=== PATIENT | female | born 1965 | race Caucasian/White ===

== ENCOUNTER 2018-12-27 16:31 | Inpatient (IN) ==
[2018-12-27] MEDS ORDERED: SODIUM CHLORIDE 0.9% 1,000 ML IV STA (17:03)
[2018-12-27] MEDS ORDERED: ONDANSETRON 4 MG/2 ML VIAL IV PRN (17:03)
[2018-12-27 17:11] LABS: Basophils # 0.1 10*3/uL (0.0-0.2); Basophils % 0.4 % (0.0-0.8); Hematocrit 46.2 VOL% (35.7-47.0); Hemoglobin 14.5 GM/DL (12.0-16.0); Immature Granulocytes % 0.4 %; Immature Granulocytes Absolute 0.06 #; Lymphocytes # 1.6 10*3/uL (1.4-4.0); Lymphocytes % 11.7 % (21.3-54.2); Mean Corpuscular HGB Conc 31.4 GM/DL (32-36); Mean Corpuscular Volume 86.7 FL (87-102); Mean Platelet Volume 10.5 FL (9.6-12.0); Monocytes % 2.6 % (1.7-12.7); Neutrophils % 84.9 % (38.7-73.9); Platelet Count 457 T/CUMM (130-400); Red Blood Count 5.33 MC/CUMM (3.8-5.5); Red Cell Distribution Width 13.9 % (9.3-17.3); White Blood Count 13.3 T/CUMM (4-12)
[2018-12-27 17:18] LABS: INR 0.9; PT Patient Result 9.9 SECS (9.6-12.2)
[2018-12-27 17:21] LABS: Apearance,Urine CLEAR (Clear); Bacteria,Urine Occasional /HPF (Few); Bilirubin,Urine Negative (Negative); Blood, Urine Negative (Negative); Glucose,Urine (UA) >=500 mg/dL (Negative); Ketones,Urine 80 mg/dL (Negative); Nitrite,Urine Negative (Negative); Protein,Urine Negative; RBC,Urine 3 /HPF (0-4); Squamous Epithelial Cell,Urine Occasional /HPF (0-10); Urine Color Straw (Yellow); Urine Specific Gravity 1.022 (1.001-1.035); Urine Urobilinogen < 2.0 EU/DL (0.2-1.0); WBC,Urine <1 /HPF (0-6)
[2018-12-27 17:23] LABS: Alanine Aminotransferase 24 U/L (13-56); Alkaline Phosphatase 193 U/L (45-117); Aspartate Amino Transferase 12 U/L (0-37); Blood Urea Nitrogen 37 MG/DL (7-18); Calcium 9.8 MG/DL (8.5-10.1); Estimated Glom Filtration Rate 31 ML/MIN; Osmolality,Calculated 309.9 MOS/KG (273-304)
[2018-12-27] MEDS ORDERED: INSULIN REGULAR 100 UNIT/ML IV ONE (17:25)
[2018-12-27 17:27] LABS: Glucose 864 MG/DL (74-106)
[2018-12-27 17:31] LABS: Barbiturates Screen,Urine Negative (Negative); Benzodiazepines Screen,Urine Negative (Negative); Cannabinoid Screen,Urine Negative (Negative); Opiate Screen,Urine Negative (Negative); Phencyclidine Screen,Urine Negative (Negative)
[2018-12-27] MEDS ORDERED: SODIUM BICARB INJ 100 MEQ in STERILE WATER INJ 400 ML IV PRN (17:39)
[2018-12-27] MEDS ORDERED: DEXTROSE 50% 25 GM/50 ML VIAL IV PRN ×2 (17:39)
[2018-12-27] MEDS ORDERED: SODIUM CHLORIDE 0.9% 1,000 ML IV ONE (17:39)
[2018-12-27] MEDS ORDERED: SODIUM PHOSPHATE INJ 14.7 MMOL in SODIUM CHLORIDE 0.9% 250 ML IV PRN (17:39)
[2018-12-27] MEDS ORDERED: MAGNESIUM SULF RIDER 4 GM in PREMIX 1 EACH IV PRN (17:39)
[2018-12-27 18:05] LABS: ABG Base Excess -22.5 MMOL/L (-2.5-2.5); ABG HCO3 2.7 MMOL/L (20-26); ABG Oxygen Saturation 98.1 % (95-100); ABG PO2 134.6 MM HG (80-95); ABG TCO2 2.9 MMOL/L (23-27); Allen Test Positive; Pt O2 Delivery Device Room Air
[2018-12-27 18:13] LABS: ABG PCO2 7.1 MM HG (35-48); ABG PH 7.192 (7.35-7.45)
[2018-12-27] MEDS: INSULIN REGULAR DRIP 100 ML IV SCH (18:33)
[2018-12-27 18:38] LABS: Calcium 7.4 MG/DL (8.5-10.1); Osmolality,Calculated 317.5 MOS/KG (273-304)
[2018-12-27] MEDS: SODIUM CHLORIDE 0.9% 1,000 ML IV SCH ×2 (20:30→22:30)
[2018-12-27 23:33] LABS: Calcium 8.5 MG/DL (8.5-10.1); Osmolality,Calculated 302.8 MOS/KG (273-304)
[2018-12-27] MEDS ORDERED: PNEUMOCOCCAL VACCINE (23 VALENT) 0.5 ML VIAL IM ONE (23:37)
[2018-12-27] MEDS ORDERED: INFLUENZA VIRUS VACCINE 0.5 ML SYRINGE IM ONE (23:37)
[2018-12-28] MEDS ORDERED: INSULIN REGULAR 100 UNIT/ML IV ONE (00:20)
[2018-12-28] MEDS: SODIUM CHLORIDE 0.9% 1,000 ML IV SCH ×2 (00:31→04:06)
[2018-12-28 02:25] LABS: Basophils % 0.2 % (0.0-0.8); Hematocrit 35.9 VOL% (35.7-47.0); Hemoglobin 11.6 GM/DL (12.0-16.0); Immature Granulocytes % 0.6 %; Immature Granulocytes Absolute 0.09 #; Lymphocytes # 1.9 10*3/uL (1.4-4.0); Lymphocytes % 12.2 % (21.3-54.2); Mean Corpuscular HGB Conc 32.3 GM/DL (32-36); Mean Corpuscular Volume 84.1 FL (87-102); Mean Platelet Volume 9.5 FL (9.6-12.0); Monocytes % 7.4 % (1.7-12.7); Neutrophils % 79.6 % (38.7-73.9); Platelet Count 330 T/CUMM (130-400); Red Blood Count 4.27 MC/CUMM (3.8-5.5); Red Cell Distribution Width 13.9 % (9.3-17.3); White Blood Count 15.8 T/CUMM (4-12)
[2018-12-28 02:40] LABS: Calcium 8.1 MG/DL (8.5-10.1); Osmolality,Calculated 300.6 MOS/KG (273-304)
[2018-12-28] MEDS: SODIUM CHLORIDE 0.45% 1,000 ML IV SCH ×2 (03:10→08:54)
[2018-12-28 04:27] LABS: ABG HCO3 15.2 MMOL/L (20-26); ABG Oxygen Saturation 97.9 % (95-100); ABG PCO2 22.7 MM HG (35-48); ABG PH 7.342 (7.35-7.45); ABG PO2 96.2 MM HG (80-95); Allen Test Positive; Pt O2 Delivery Device Room Air
[2018-12-28] MEDS: DEXTROSE 5% NACL 0.45% 1,000 ML IV SCH ×2 (04:55→08:22)
[2018-12-28 06:28] LABS: Calcium 8.3 MG/DL (8.5-10.1); Osmolality,Calculated 293.7 MOS/KG (273-304)
[2018-12-28] MEDS: POTASSIUM CHLORIDE RIDER 10 MEQ in PREMIX 1 EACH IV PRN (07:14)
[2018-12-28] MEDS: MAGNESIUM SULF RIDER 2 GM in PREMIX 1 EACH IV PRN (07:14)
[2018-12-28 08:24] LABS: ABG Base Excess -7.6 MMOL/L (-2.5-2.5); ABG HCO3 18.3 MMOL/L (20-26); ABG Oxygen Saturation 97.9 % (95-100); ABG PCO2 27.3 MM HG (35-48); ABG PH 7.382 (7.35-7.45); ABG PO2 91.5 MM HG (80-95); ABG TCO2 14.4 MMOL/L (23-27)
[2018-12-28] MEDS ORDERED: MAGNESIUM SULF RIDER 2 GM in PREMIX 1 EACH IV ONE (08:57)
[2018-12-28] MEDS: DEXTROSE 5% LACTATED RINGERS 1,000 ML IV SCH ×2 (09:41→18:30)
[2018-12-28] MEDS ORDERED: SODIUM CHLORIDE 0.45% 1,000 ML IV SCH (10:39)
[2018-12-28] MEDS: INSULIN REGULAR DRIP 100 ML IV SCH (19:45)
[2018-12-28] MEDS: APIXABAN 2.5 MG TABLET PO SCH (21:18)
[2018-12-29] MEDS: DEXTROSE 5% LACTATED RINGERS 1,000 ML IV SCH ×4 (02:50→20:08)
[2018-12-29 03:25] LABS: Basophils # 0.1 10*3/uL (0.0-0.2); Basophils % 0.4 % (0.0-0.8); Hematocrit 35.3 VOL% (35.7-47.0); Hemoglobin 11.8 GM/DL (12.0-16.0); Immature Granulocytes % 0.9 %; Immature Granulocytes Absolute 0.11 #; Lymphocytes # 2.5 10*3/uL (1.4-4.0); Lymphocytes % 20.6 % (21.3-54.2); Mean Corpuscular HGB Conc 33.4 GM/DL (32-36); Mean Corpuscular Volume 81.1 FL (87-102); Mean Platelet Volume 9.4 FL (9.6-12.0); Monocytes % 6.4 % (1.7-12.7); Neutrophils % 71.7 % (38.7-73.9); Platelet Count 267 T/CUMM (130-400); Red Blood Count 4.35 MC/CUMM (3.8-5.5); Red Cell Distribution Width 14.2 % (9.3-17.3); White Blood Count 11.9 T/CUMM (4-12)
[2018-12-29 03:55] LABS: Calcium 8.6 MG/DL (8.5-10.1)
[2018-12-29] MEDS: POTASSIUM CHLORIDE RIDER 10 MEQ in PREMIX 1 EACH IV PRN ×10 (04:05→22:09)
[2018-12-29] MEDS: MAGNESIUM SULF RIDER 2 GM in PREMIX 1 EACH IV PRN (05:42)
[2018-12-29] MEDS: APIXABAN 2.5 MG TABLET PO SCH ×2 (08:55→20:10)
[2018-12-29] MEDS: ASPIRIN EC 81 MG TABLET PO SCH (08:57)
[2018-12-29] MEDS: INSULIN REGULAR DRIP 100 ML IV SCH (18:24)
[2018-12-29] MEDS: ACETAMINOPHEN 325 MG TABLET PO PRN (19:42)
[2018-12-30 04:16] LABS: Basophils # 0.1 10*3/uL (0.0-0.2); Basophils % 0.7 % (0.0-0.8); Eosinophils % 0.1 % (0.00-10.9); Hematocrit 35.5 VOL% (35.7-47.0); Hemoglobin 11.9 GM/DL (12.0-16.0); Immature Granulocytes % 0.6 %; Immature Granulocytes Absolute 0.06 #; Lymphocytes # 3.1 10*3/uL (1.4-4.0); Lymphocytes % 29.6 % (21.3-54.2); Mean Corpuscular HGB Conc 33.5 GM/DL (32-36); Mean Corpuscular Volume 80.7 FL (87-102); Mean Platelet Volume 9.9 FL (9.6-12.0); Monocytes % 10.3 % (1.7-12.7); Neutrophils % 58.7 % (38.7-73.9); Platelet Count 230 T/CUMM (130-400); Red Cell Distribution Width 14.4 % (9.3-17.3); White Blood Count 10.3 T/CUMM (4-12)
[2018-12-30] MEDS: DEXTROSE 5% LACTATED RINGERS 1,000 ML IV SCH ×2 (04:24→10:57)
[2018-12-30 04:39] LABS: Albumin 2.5 G/DL (3.4-5.0); Bilirubin,Total 0.5 MG/DL (0.2-1.0); Calcium 8.5 MG/DL (8.5-10.1); Osmolality,Calculated 274.5 MOS/KG (273-304)
[2018-12-30] MEDS: ACETAMINOPHEN 325 MG TABLET PO PRN ×3 (05:23→22:39)
[2018-12-30] MEDS: POTASSIUM CHLORIDE RIDER 10 MEQ in PREMIX 1 EACH IV PRN ×7 (05:24→17:24)
[2018-12-30] MEDS: MAGNESIUM SULF RIDER 2 GM in PREMIX 1 EACH IV PRN (05:24)
[2018-12-30] MEDS: APIXABAN 2.5 MG TABLET PO SCH ×2 (08:34→21:39)
[2018-12-30] MEDS: ASPIRIN EC 81 MG TABLET PO SCH (08:34)
[2018-12-30] MEDS ORDERED: DEXTROSE 10% 250 ML BAG IV ONE (09:14)
[2018-12-30] MEDS: INSULIN LISPRO 100 UNIT/ML SUBCUT SCH ×3 (11:41→20:50)
[2018-12-30] MEDS: SODIUM CHLOR 0.9% KCL 20 MEQ 20 MEQ/1,000 ML BAG IV SCH (11:41)
[2018-12-31] MEDS: INSULIN LISPRO 100 UNIT/ML SUBCUT SCH ×6 (00:11→22:28)
[2018-12-31] MEDS: SODIUM CHLOR 0.9% KCL 20 MEQ 20 MEQ/1,000 ML BAG IV SCH ×2 (07:42→21:15)
[2018-12-31] MEDS: APIXABAN 2.5 MG TABLET PO SCH ×2 (08:47→22:30)
[2018-12-31] MEDS: ACETAMINOPHEN 325 MG TABLET PO PRN ×2 (08:47→18:22)
[2018-12-31] MEDS: ASPIRIN EC 81 MG TABLET PO SCH (08:47)
[2018-12-31 08:49] LABS: Basophils # 0.1 10*3/uL (0.0-0.2); Basophils % 0.6 % (0.0-0.8); Eosinophils % 0.4 % (0.00-10.9); Hematocrit 36.9 VOL% (35.7-47.0); Hemoglobin 12.2 GM/DL (12.0-16.0); Immature Granulocytes % 0.7 %; Immature Granulocytes Absolute 0.06 #; Lymphocytes # 1.8 10*3/uL (1.4-4.0); Lymphocytes % 21.3 % (21.3-54.2); Mean Corpuscular HGB Conc 33.1 GM/DL (32-36); Mean Corpuscular Volume 81.5 FL (87-102); Mean Platelet Volume 10.1 FL (9.6-12.0); Monocytes % 8.6 % (1.7-12.7); Neutrophils % 68.4 % (38.7-73.9); Red Blood Count 4.53 MC/CUMM (3.8-5.5); Red Cell Distribution Width 14.5 % (9.3-17.3); White Blood Count 8.2 T/CUMM (4-12)
[2018-12-31 08:51] LABS: Platelet Count 169 T/CUMM (130-400)
[2018-12-31 09:08] LABS: Calcium 8.9 MG/DL (8.5-10.1); Osmolality,Calculated 282.5 MOS/KG (273-304)
[2018-12-31] MEDS: POTASSIUM CHLORIDE RIDER 10 MEQ in PREMIX 1 EACH IV PRN ×2 (10:20→11:21)
[2018-12-31] MEDS: MAGNESIUM SULF RIDER 2 GM in PREMIX 1 EACH IV PRN (10:21)
[2018-12-31] MEDS: INSULIN REGULAR DRIP 100 ML IV SCH (16:36)
[2018-12-31] MEDS: DEXTROSE 5% LACTATED RINGERS 1,000 ML IV SCH (16:36)
[2018-12-31] MEDS: ACETAMINOPHEN 500 MG TABLET PO PRN (22:30)
[2019-01-01] MEDS: INSULIN LISPRO 100 UNIT/ML SUBCUT SCH ×6 (00:40→20:43)
[2019-01-01] MEDS: SODIUM CHLOR 0.9% KCL 20 MEQ 20 MEQ/1,000 ML BAG IV SCH ×3 (00:45→20:45)
[2019-01-01] MEDS ORDERED: diphenhydrAMINE 50 MG/1 ML VIAL IV ONE (01:16)
[2019-01-01] MEDS: ACETAMINOPHEN 500 MG TABLET PO PRN ×3 (03:48→20:44)
[2019-01-01 05:02] LABS: Prealbumin 10.2 MG/DL (20-40)
[2019-01-01] MEDS: ASPIRIN EC 81 MG TABLET PO SCH (09:16)
[2019-01-01] MEDS: APIXABAN 2.5 MG TABLET PO SCH (09:16)
[2019-01-01] MEDS ORDERED: SIMVASTATIN 10 MG TABLET PO SCH (21:00)
[2019-01-02] MEDS: INSULIN LISPRO 100 UNIT/ML SUBCUT SCH ×6 (00:23→21:52)
[2019-01-02] MEDS: ACETAMINOPHEN 500 MG TABLET PO PRN ×2 (01:47→21:54)
[2019-01-02 07:22] LABS: Basophils # 0.1 10*3/uL (0.0-0.2); Basophils % 0.6 % (0.0-0.8); Eosinophils % 0.1 % (0.00-10.9); Hematocrit 32.1 VOL% (35.7-47.0); Hemoglobin 10.4 GM/DL (12.0-16.0); Immature Granulocytes % 1.2 %; Immature Granulocytes Absolute 0.12 #; Lymphocytes # 1.1 10*3/uL (1.4-4.0); Lymphocytes % 10.7 % (21.3-54.2); Mean Corpuscular HGB Conc 32.4 GM/DL (32-36); Mean Corpuscular Volume 83.6 FL (87-102); Mean Platelet Volume 10.7 FL (9.6-12.0); Monocytes % 15.2 % (1.7-12.7); Neutrophils % 72.2 % (38.7-73.9); Platelet Count 348 T/CUMM (130-400); Red Blood Count 3.84 MC/CUMM (3.8-5.5); White Blood Count 10.4 T/CUMM (4-12)
[2019-01-02 07:45] LABS: Band Neutrophils 5 % (0-10); Eosinophils 1 % (0-10); Hypochromasia 1+; Lymphocytes 12 % (20-55); Platelet Estimate Adequate; Segmented Neutrophils 73 % (50-85); Total Cells Counted 100
[2019-01-02 07:49] LABS: Calcium 9.4 MG/DL (8.5-10.1)
[2019-01-02] MEDS: ASPIRIN EC 81 MG TABLET PO SCH ×2 (08:25→08:32)
[2019-01-02] MEDS: SODIUM CHLOR 0.9% KCL 20 MEQ 20 MEQ/1,000 ML BAG IV SCH (16:39)
[2019-01-02] MEDS: ATORVASTATIN 40 MG TABLET PO SCH (21:54)
[2019-01-03] MEDS: INSULIN LISPRO 100 UNIT/ML SUBCUT SCH ×6 (04:22→21:38)
[2019-01-03] MEDS: SODIUM CHLOR 0.9% KCL 20 MEQ 20 MEQ/1,000 ML BAG IV SCH ×2 (04:22→10:45)
[2019-01-03 05:52] LABS: Basophils % 0.3 % (0.0-0.8); Hematocrit 34.9 VOL% (35.7-47.0); Hemoglobin 11.1 GM/DL (12.0-16.0); Immature Granulocytes Absolute 0.15 #; Lymphocytes # 1.6 10*3/uL (1.4-4.0); Lymphocytes % 10.6 % (21.3-54.2); Mean Corpuscular HGB Conc 31.8 GM/DL (32-36); Mean Corpuscular Volume 84.7 FL (87-102); Mean Platelet Volume 10.9 FL (9.6-12.0); Monocytes % 12.2 % (1.7-12.7); NRBC # 0.02 10*3/uL; Neutrophils % 75.9 % (38.7-73.9); Platelet Count 429 T/CUMM (130-400); Red Blood Count 4.12 MC/CUMM (3.8-5.5); Red Cell Distribution Width 15.6 % (9.3-17.3); White Blood Count 15.2 T/CUMM (4-12)
[2019-01-03 06:25] LABS: Calcium 10.1 MG/DL (8.5-10.1); Osmolality,Calculated 303.6 MOS/KG (273-304)
[2019-01-03 06:28] LABS: Hypochromasia Slight; Platelet Estimate Normal; Polychromasia Few
[2019-01-03] MEDS: ASPIRIN EC 81 MG TABLET PO SCH (10:44)
[2019-01-03] MEDS ORDERED: METOPROLOL TARTRATE 5 MG/5 ML VIAL IV ONE (18:14)
[2019-01-03] MEDS: ACETAMINOPHEN 500 MG TABLET PO PRN (20:17)
[2019-01-03] MEDS: ATORVASTATIN 40 MG TABLET PO SCH (20:18)
[2019-01-03 21:05] LABS: Apearance,Urine CLOUDY (Clear); Bacteria,Urine Many /HPF (Few); Bilirubin,Urine Negative (Negative); Blood, Urine Small mg/dL (Negative); Glucose,Urine (UA) >=500 mg/dL (Negative); Ketones,Urine 20 mg/dL (Negative); Mucus,Urine Occasional /LPF (Occasional); Nitrite,Urine Negative (Negative); Protein,Urine 100 MG/DL; RBC,Urine 8 /HPF (0-4); Squamous Epithelial Cell,Urine Moderate /HPF (0-10); Urine Color Amber (Yellow); Urine Specific Gravity 1.023 (1.001-1.035); Urine Urobilinogen < 2.0 EU/DL (0.2-1.0); WBC,Urine 37 /HPF (0-6)
[2019-01-03] MEDS: cefTRIAXone 1,000 MG in SYRINGE 1 EACH IV SCH (22:29)
[2019-01-04] MEDS: INSULIN LISPRO 100 UNIT/ML SUBCUT SCH ×6 (00:42→21:15)
[2019-01-04] MEDS: ACETAMINOPHEN 500 MG TABLET PO PRN ×3 (04:21→18:15)
[2019-01-04 05:22] LABS: Basophils # 0.1 10*3/uL (0.0-0.2); Basophils % 0.4 % (0.0-0.8); Hematocrit 34.3 VOL% (35.7-47.0); Hemoglobin 10.7 GM/DL (12.0-16.0); Immature Granulocytes % 1.2 %; Immature Granulocytes Absolute 0.31 #; Lymphocytes # 2.7 10*3/uL (1.4-4.0); Lymphocytes % 10.4 % (21.3-54.2); Mean Corpuscular HGB Conc 31.2 GM/DL (32-36); Mean Corpuscular Volume 87.7 FL (87-102); Mean Platelet Volume 11.1 FL (9.6-12.0); Monocytes % 9.7 % (1.7-12.7); NRBC # 0.02 10*3/uL; Neutrophils % 78.3 % (38.7-73.9); Platelet Count 457 T/CUMM (130-400); Red Blood Count 3.91 MC/CUMM (3.8-5.5); Red Cell Distribution Width 16.2 % (9.3-17.3)
[2019-01-04 05:37] LABS: Calcium 10.2 MG/DL (8.5-10.1); Osmolality,Calculated 308.9 MOS/KG (273-304); Prealbumin 4.4 MG/DL (20-40)
[2019-01-04 05:50] LABS: Band Neutrophils 3 % (0-10); Lymphocytes 12 % (20-55); Metamyelocytes 2 %; Segmented Neutrophils 74 % (50-85); Total Cells Counted 100
[2019-01-04 05:51] LABS: Hypochromasia Slight; Platelet Estimate Increased
[2019-01-04] MEDS: SODIUM CHLOR 0.9% KCL 20 MEQ 20 MEQ/1,000 ML BAG IV SCH (06:09)
[2019-01-04] MEDS: DEXTROSE 5% NACL 0.45% 1,000 ML IV SCH (09:22)
[2019-01-04] MEDS: ASPIRIN EC 81 MG TABLET PO SCH (09:22)
[2019-01-04] MEDS: METOPROLOL TARTRATE 25 MG TABLET PO SCH ×2 (09:23→21:15)
[2019-01-04] MEDS ORDERED: VANCOMYCIN INJ 1,000 MG in SODIUM CHLORIDE 0.9% 250 ML IV SCH (12:00)
[2019-01-04] MEDS: IBUPROFEN 100 MG/5 ML UDCUP PO PRN (20:34)
[2019-01-04] MEDS: ATORVASTATIN 40 MG TABLET PO SCH (21:15)
[2019-01-04] MEDS: cefTRIAXone 1,000 MG in SYRINGE 1 EACH IV SCH (22:12)
[2019-01-05] MEDS: VANCOMYCIN INJ 1,000 MG in SODIUM CHLORIDE 0.9% 250 ML IV SCH ×2 (00:22→11:09)
[2019-01-05] MEDS: INSULIN LISPRO 100 UNIT/ML SUBCUT SCH ×6 (00:23→20:35)
[2019-01-05] MEDS: ACETAMINOPHEN 325 MG/10.15 ML UDCUP PO PRN (00:24)
[2019-01-05 04:21] LABS: Basophils # 0.1 10*3/uL (0.0-0.2); Basophils % 0.3 % (0.0-0.8); Hematocrit 33.9 VOL% (35.7-47.0); Hemoglobin 10.7 GM/DL (12.0-16.0); Immature Granulocytes % 2.1 %; Immature Granulocytes Absolute 0.63 #; Lymphocytes % 9.9 % (21.3-54.2); Mean Corpuscular HGB Conc 31.6 GM/DL (32-36); Mean Corpuscular Volume 85.2 FL (87-102); Mean Platelet Volume 10.4 FL (9.6-12.0); Neutrophils % 82.7 % (38.7-73.9); Platelet Count 519 T/CUMM (130-400); Red Blood Count 3.98 MC/CUMM (3.8-5.5); Red Cell Distribution Width 16.1 % (9.3-17.3)
[2019-01-05 05:17] LABS: Calcium 10.2 MG/DL (8.5-10.1); Osmolality,Calculated 300.4 MOS/KG (273-304)
[2019-01-05 05:27] LABS: Anisocytosis 1+; Lymphocytes 10 % (20-55); Platelet Estimate Increased; Segmented Neutrophils 81 % (50-85); Total Cells Counted 100
[2019-01-05] MEDS: METOPROLOL TARTRATE 25 MG TABLET PO SCH ×2 (08:47→20:36)
[2019-01-05] MEDS: ASPIRIN EC 81 MG TABLET PO SCH (08:48)
[2019-01-05] MEDS: DEXTROSE 5% NACL 0.45% 1,000 ML IV SCH (08:49)
[2019-01-05] MEDS ORDERED: APIXABAN 2.5 MG TABLET PO ONE (10:30)
[2019-01-05] MEDS: POLYETHYLENE GLYCOL POWDER 17 GM PACK PO SCH (11:49)
[2019-01-05] MEDS: INSULIN GLARGINE 100 UNIT/ML SUBCUT SCH (20:34)
[2019-01-05] MEDS: ATORVASTATIN 40 MG TABLET PO SCH (20:36)
[2019-01-05] MEDS: APIXABAN 2.5 MG TABLET PO SCH (20:38)
[2019-01-05] MEDS: cefTRIAXone 1,000 MG in SYRINGE 1 EACH IV SCH (21:02)
[2019-01-06] MEDS: VANCOMYCIN INJ 1,000 MG in SODIUM CHLORIDE 0.9% 250 ML IV SCH ×3 (00:31→23:58)
[2019-01-06 00:38] LABS: Barbiturates Screen,Urine Negative (Negative); Benzodiazepines Screen,Urine Negative (Negative); Cannabinoid Screen,Urine Positive (Negative); Opiate Screen,Urine Positive (Negative); Phencyclidine Screen,Urine Negative (Negative)
[2019-01-06] MEDS: INSULIN LISPRO 100 UNIT/ML SUBCUT SCH ×6 (01:23→20:22)
[2019-01-06] MEDS: ACETAMINOPHEN 325 MG/10.15 ML UDCUP PO PRN ×2 (05:43→15:39)
[2019-01-06 06:14] LABS: Basophils # 0.1 10*3/uL (0.0-0.2); Basophils % 0.3 % (0.0-0.8); Eosinophils % 0.1 % (0.00-10.9); Hematocrit 32.9 VOL% (35.7-47.0); Hemoglobin 10.2 GM/DL (12.0-16.0); Immature Granulocytes % 2.2 %; Immature Granulocytes Absolute 0.57 #; Lymphocytes # 2.4 10*3/uL (1.4-4.0); Lymphocytes % 9.5 % (21.3-54.2); Mean Corpuscular Volume 86.1 FL (87-102); Mean Platelet Volume 11.6 FL (9.6-12.0); Monocytes % 4.4 % (1.7-12.7); NRBC # 0.03 10*3/uL; Neutrophils % 83.5 % (38.7-73.9); Platelet Count 346 T/CUMM (130-400); Red Blood Count 3.82 MC/CUMM (3.8-5.5); Red Cell Distribution Width 16.4 % (9.3-17.3); White Blood Count 25.5 T/CUMM (4-12)
[2019-01-06 06:30] LABS: Anisocytosis 1+; Lymphocytes 7 % (20-55); Segmented Neutrophils 90 % (50-85); Total Cells Counted 100
[2019-01-06 06:31] LABS: Platelet Estimate Normal
[2019-01-06] MEDS: DEXTROSE 5% NACL 0.45% 1,000 ML IV SCH (07:06)
[2019-01-06] MEDS: SODIUM CHLORIDE 0.9% 1,000 ML IV SCH (07:08)
[2019-01-06 07:51] LABS: Calcium 9.7 MG/DL (8.5-10.1); Osmolality,Calculated 313.4 MOS/KG (273-304)
[2019-01-06 08:23] LABS: Apearance,Urine CLOUDY (Clear); Bilirubin,Urine Negative (Negative); Blood, Urine Moderate mg/dL (Negative); Glucose,Urine (UA) 150 mg/dL (Negative); Ketones,Urine Negative (Negative); Nitrite,Urine Negative (Negative); Protein,Urine 100 MG/DL; RBC,Urine 16190 /HPF (0-4); Urine Color Yellow (Yellow); Urine Specific Gravity 1.023 (1.001-1.035); WBC,Urine 139 /HPF (0-6)
[2019-01-06] MEDS: APIXABAN 2.5 MG TABLET PO SCH ×2 (09:01→20:18)
[2019-01-06] MEDS: ASPIRIN EC 81 MG TABLET PO SCH (09:01)
[2019-01-06] MEDS: METOPROLOL TARTRATE 25 MG TABLET PO SCH ×2 (09:02→20:17)
[2019-01-06] MEDS: POLYETHYLENE GLYCOL POWDER 17 GM PACK PO SCH (09:46)
[2019-01-06] MEDS: INSULIN GLARGINE 100 UNIT/ML SUBCUT SCH (20:21)
[2019-01-06] MEDS: ATORVASTATIN 40 MG TABLET PO SCH (20:21)
[2019-01-06] MEDS: cefTRIAXone 1,000 MG in SYRINGE 1 EACH IV SCH (21:46)
[2019-01-07] MEDS: ALBUTEROL/IPRATROPIUM 3 ML NEB RESP TX PRN ×2 (01:13→16:18)
[2019-01-07] MEDS: ACETAMINOPHEN 325 MG/10.15 ML UDCUP PO PRN (01:48)
[2019-01-07] MEDS: INSULIN LISPRO 100 UNIT/ML SUBCUT SCH ×6 (01:56→21:18)
[2019-01-07] MEDS: SODIUM CHLORIDE 0.9% 1,000 ML IV SCH ×2 (04:01→04:57)
[2019-01-07 08:00] LABS: Basophils # 0.1 10*3/uL (0.0-0.2); Basophils % 0.4 % (0.0-0.8); Hematocrit 31.7 VOL% (35.7-47.0); Hemoglobin 9.9 GM/DL (12.0-16.0); Immature Granulocytes % 4.2 %; Immature Granulocytes Absolute 1.07 #; Lymphocytes # 2.9 10*3/uL (1.4-4.0); Lymphocytes % 11.3 % (21.3-54.2); Mean Corpuscular HGB Conc 31.2 GM/DL (32-36); Mean Corpuscular Volume 85.9 FL (87-102); Mean Platelet Volume 10.3 FL (9.6-12.0); Monocytes % 4.1 % (1.7-12.7); Platelet Count 489 T/CUMM (130-400); Red Blood Count 3.69 MC/CUMM (3.8-5.5); Red Cell Distribution Width 16.5 % (9.3-17.3); White Blood Count 25.2 T/CUMM (4-12)
[2019-01-07 08:18] LABS: Calcium 9.2 MG/DL (8.5-10.1); Osmolality,Calculated 316.6 MOS/KG (273-304)
[2019-01-07 08:23] LABS: Band Neutrophils 5 % (0-10); Eosinophils 1 % (0-10); Lymphocytes 12 % (20-55); Platelet Estimate Normal; Segmented Neutrophils 76 % (50-85); Smudge Cells Few; Total Cells Counted 100
[2019-01-07 08:24] LABS: Anisocytosis Slight
[2019-01-07] MEDS: METOPROLOL TARTRATE 25 MG TABLET PO SCH ×2 (09:51→21:19)
[2019-01-07] MEDS: POLYETHYLENE GLYCOL POWDER 17 GM PACK PO SCH (09:51)
[2019-01-07] MEDS: ASPIRIN EC 81 MG TABLET PO SCH (09:51)
[2019-01-07] MEDS: APIXABAN 2.5 MG TABLET PO SCH ×2 (09:51→21:19)
[2019-01-07] MEDS: PIPERACILLIN/TAZOBACTAM 3,375 MG in SODIUM CHLORIDE 0.9% 100 ML IV SCH ×2 (09:52→18:25)
[2019-01-07] MEDS: DEXTROSE 5% NACL 0.45% 1,000 ML IV SCH (11:23)
[2019-01-07] MEDS: VANCOMYCIN INJ 1,000 MG in SODIUM CHLORIDE 0.9% 250 ML IV SCH ×2 (12:18→23:37)
[2019-01-07] MEDS: INSULIN GLARGINE 100 UNIT/ML SUBCUT SCH (21:19)
[2019-01-07] MEDS: ATORVASTATIN 40 MG TABLET PO SCH (21:20)
[2019-01-08] MEDS: INSULIN LISPRO 100 UNIT/ML SUBCUT SCH ×7 (00:10→23:51)
[2019-01-08] MEDS: DEXTROSE 5% NACL 0.45% 1,000 ML IV SCH (00:38)
[2019-01-08] MEDS: PIPERACILLIN/TAZOBACTAM 3,375 MG in SODIUM CHLORIDE 0.9% 100 ML IV SCH ×3 (02:05→17:00)
[2019-01-08 04:52] LABS: Basophils % 0.2 % (0.0-0.8); Eosinophils # 0.1 10*3/uL (0.0-0.87); Eosinophils % 0.4 % (0.00-10.9); Hematocrit 26.4 VOL% (35.7-47.0); Hemoglobin 7.8 GM/DL (12.0-16.0); Immature Granulocytes Absolute 0.65 #; Lymphocytes # 1.9 10*3/uL (1.4-4.0); Lymphocytes % 11.6 % (21.3-54.2); Mean Corpuscular HGB Conc 29.5 GM/DL (32-36); Mean Corpuscular Volume 88.9 FL (87-102); Mean Platelet Volume 11.6 FL (9.6-12.0); Monocytes % 4.3 % (1.7-12.7); NRBC # 0.02 10*3/uL; Neutrophils % 79.5 % (38.7-73.9); Platelet Count 281 T/CUMM (130-400); Red Blood Count 2.97 MC/CUMM (3.8-5.5); Red Cell Distribution Width 16.9 % (9.3-17.3); White Blood Count 16.4 T/CUMM (4-12)
[2019-01-08 05:16] LABS: Band Neutrophils 2 % (0-10); Eosinophils 2 % (0-10); Hypochromasia 1+; Lymphocytes 15 % (20-55); Platelet Estimate Adequate; Segmented Neutrophils 79 % (50-85); Total Cells Counted 100
[2019-01-08 05:17] LABS: Atypical Lymphocytes Few
[2019-01-08 05:19] LABS: Calcium 8.8 MG/DL (8.5-10.1); Osmolality,Calculated 311.4 MOS/KG (273-304); Prealbumin 3.7 MG/DL (20-40)
[2019-01-08] MEDS: ALBUTEROL/IPRATROPIUM 3 ML NEB RESP TX PRN (05:21)
[2019-01-08] MEDS: POTASSIUM CHLORIDE RIDER 10 MEQ in PREMIX 1 EACH IV PRN (06:15)
[2019-01-08] MEDS ORDERED: PROPOFOL 200 MG/20 ML VIAL IV ONE (09:02)
[2019-01-08] MEDS ORDERED: ETOMIDATE 40 MG/20 ML VIAL IV ONE (09:02)
[2019-01-08] MEDS ORDERED: LIDOCAINE 2% 5 ML VIAL ONE (09:02)
[2019-01-08] MEDS ORDERED: MIDAZOLAM 2 MG/2 ML VIAL ONE (09:02)
[2019-01-08] MEDS ORDERED: PHENYLEPHRINE 1 MG/10 ML SYRINGE IV ONE (09:03)
[2019-01-08] MEDS ORDERED: ROCURONIUM 100 MG/10 ML VIAL IV ONE (09:03)
[2019-01-08] MEDS ORDERED: SUCCINYLCHOLINE 200 MG/10 ML VIAL ONE (09:03)
[2019-01-08] MEDS ORDERED: PHENYLEPHRINE DRIP 40 MG/250 ML PREMIX IV PRN (09:10)
[2019-01-08] MEDS: ASPIRIN EC 81 MG TABLET PO SCH (09:12)
[2019-01-08] MEDS: METOPROLOL TARTRATE 25 MG TABLET PO SCH ×2 (09:24→20:25)
[2019-01-08] MEDS: APIXABAN 2.5 MG TABLET PO SCH ×2 (09:24→20:25)
[2019-01-08] MEDS: POLYETHYLENE GLYCOL POWDER 17 GM PACK PO SCH (09:27)
[2019-01-08] MEDS: DEXTROSE 5% 1,000 ML IV SCH ×2 (09:31→16:55)
[2019-01-08] MEDS: PROPOFOL 1,000 MG/100 ML BOTTLE IV SCH (10:14)
[2019-01-08] MEDS: VANCOMYCIN INJ 1,000 MG in SODIUM CHLORIDE 0.9% 250 ML IV SCH ×2 (13:30→23:51)
[2019-01-08 14:23] LABS: ABG Base Excess -2.8 MMOL/L (-2.5-2.5); ABG HCO3 22.1 MMOL/L (20-26); ABG Oxygen Saturation 99.6 % (95-100); ABG PCO2 34.7 MM HG (35-48); ABG PH 7.399 (7.35-7.45); ABG TCO2 19.4 MMOL/L (23-27); Allen Test Positive; Pt O2 Delivery Device Ventilator
[2019-01-08] MEDS: INSULIN GLARGINE 100 UNIT/ML SUBCUT SCH (20:24)
[2019-01-08] MEDS: ATORVASTATIN 40 MG TABLET PO SCH (20:25)
[2019-01-09] MEDS: DEXTROSE 5% 1,000 ML IV SCH ×2 (00:58→09:21)
[2019-01-09] MEDS: PIPERACILLIN/TAZOBACTAM 3,375 MG in SODIUM CHLORIDE 0.9% 100 ML IV SCH ×3 (03:13→17:23)
[2019-01-09] MEDS: INSULIN LISPRO 100 UNIT/ML SUBCUT SCH ×5 (03:56→20:24)
[2019-01-09 04:16] LABS: ABG Base Excess -2.7 MMOL/L (-2.5-2.5); ABG HCO3 22.2 MMOL/L (20-26); ABG Oxygen Saturation 99.5 % (95-100); ABG PCO2 32.3 MM HG (35-48); ABG PH 7.425 (7.35-7.45); ABG TCO2 19.9 MMOL/L (23-27); Allen Test Positive; Pt O2 Delivery Device Ventilator
[2019-01-09 04:31] LABS: Basophils % 0.2 % (0.0-0.8); Eosinophils # 0.1 10*3/uL (0.0-0.87); Eosinophils % 0.7 % (0.00-10.9); Hematocrit 23.8 VOL% (35.7-47.0); Hemoglobin 7.2 GM/DL (12.0-16.0); Immature Granulocytes % 2.3 %; Immature Granulocytes Absolute 0.42 #; Lymphocytes # 2.4 10*3/uL (1.4-4.0); Lymphocytes % 13.4 % (21.3-54.2); Mean Corpuscular HGB Conc 30.3 GM/DL (32-36); Mean Corpuscular Volume 88.8 FL (87-102); Monocytes % 3.6 % (1.7-12.7); NRBC # 0.05 10*3/uL; Neutrophils % 79.8 % (38.7-73.9); Platelet Count 426 T/CUMM (130-400); Red Blood Count 2.68 MC/CUMM (3.8-5.5); Red Cell Distribution Width 16.6 % (9.3-17.3); White Blood Count 18.2 T/CUMM (4-12)
[2019-01-09 04:40] LABS: Calcium 8.3 MG/DL (8.5-10.1); Osmolality,Calculated 291.1 MOS/KG (273-304)
[2019-01-09 04:55] LABS: Hypochromasia 1+; Platelet Estimate Adequate
[2019-01-09] MEDS: PROPOFOL 1,000 MG/100 ML BOTTLE IV SCH ×3 (05:07→17:31)
[2019-01-09] MEDS: APIXABAN 2.5 MG TABLET PO SCH ×2 (08:17→20:23)
[2019-01-09] MEDS: METOPROLOL TARTRATE 25 MG TABLET PO SCH ×2 (08:17→20:23)
[2019-01-09] MEDS: POLYETHYLENE GLYCOL POWDER 17 GM PACK PO SCH (08:17)
[2019-01-09] MEDS: ASPIRIN CHEW 81 MG TABLET PO SCH (08:17)
[2019-01-09] MEDS ORDERED: FUROSEMIDE 20 MG/2 ML VIAL IV ONE (08:35)
[2019-01-09] MEDS ORDERED: SODIUM CHLORIDE 0.9% 1,000 ML IV PRN (08:37)
[2019-01-09] MEDS: VANCOMYCIN INJ 1,000 MG in SODIUM CHLORIDE 0.9% 250 ML IV SCH (12:49)
[2019-01-09] MEDS ORDERED: INSULIN LISPRO 100 UNIT/ML SUBCUT ONE (13:59)
[2019-01-09] MEDS: LACTATED RINGERS 1,000 ML IV SCH ×2 (14:21→23:04)
[2019-01-09 16:52] LABS: Hematocrit 30.6 VOL% (35.7-47.0); Hemoglobin 9.8 GM/DL (12.0-16.0)
[2019-01-09] MEDS: INSULIN GLARGINE 100 UNIT/ML SUBCUT SCH (20:23)
[2019-01-09] MEDS: ATORVASTATIN 40 MG TABLET PO SCH (20:23)
[2019-01-09] MEDS: ACETAMINOPHEN 325 MG/10.15 ML UDCUP PO PRN (20:28)
[2019-01-09] MEDS: IBUPROFEN 100 MG/5 ML UDCUP PO PRN (23:11)
[2019-01-10] MEDS: INSULIN LISPRO 100 UNIT/ML SUBCUT SCH ×6 (00:35→20:51)
[2019-01-10] MEDS: VANCOMYCIN INJ 1,000 MG in SODIUM CHLORIDE 0.9% 250 ML IV SCH ×2 (00:36→12:13)
[2019-01-10] MEDS: PIPERACILLIN/TAZOBACTAM 3,375 MG in SODIUM CHLORIDE 0.9% 100 ML IV SCH ×3 (02:19→18:49)
[2019-01-10 05:08] LABS: Basophils # 0.1 10*3/uL (0.0-0.2); Basophils % 0.2 % (0.0-0.8); Eosinophils # 0.1 10*3/uL (0.0-0.87); Eosinophils % 0.5 % (0.00-10.9); Hematocrit 28.1 VOL% (35.7-47.0); Hemoglobin 9.1 GM/DL (12.0-16.0); Immature Granulocytes % 4.6 %; Lymphocytes # 3.6 10*3/uL (1.4-4.0); Lymphocytes % 16.5 % (21.3-54.2); Mean Corpuscular HGB Conc 32.4 GM/DL (32-36); Mean Corpuscular Volume 84.4 FL (87-102); Mean Platelet Volume 10.7 FL (9.6-12.0); Monocytes % 2.9 % (1.7-12.7); NRBC # 0.07 10*3/uL; Neutrophils % 75.3 % (38.7-73.9); Platelet Count 415 T/CUMM (130-400); Red Blood Count 3.33 MC/CUMM (3.8-5.5); Red Cell Distribution Width 16.1 % (9.3-17.3); White Blood Count 21.6 T/CUMM (4-12)
[2019-01-10 05:33] LABS: Eosinophils 1 % (0-10); Hypochromasia 1+; Lymphocytes 21 % (20-55); Platelet Estimate Adequate; Segmented Neutrophils 77 % (50-85); Total Cells Counted 100
[2019-01-10 05:41] LABS: Calcium 8.3 MG/DL (8.5-10.1); Osmolality,Calculated 291.8 MOS/KG (273-304)
[2019-01-10] MEDS: LACTATED RINGERS 1,000 ML IV SCH ×4 (06:24→22:06)
[2019-01-10] MEDS: POTASSIUM CHLORIDE RIDER 10 MEQ in PREMIX 1 EACH IV PRN (06:39)
[2019-01-10] MEDS: APIXABAN 2.5 MG TABLET PO SCH ×2 (09:19→20:52)
[2019-01-10] MEDS: METOPROLOL TARTRATE 25 MG TABLET PO SCH ×2 (09:19→20:52)
[2019-01-10] MEDS: POLYETHYLENE GLYCOL POWDER 17 GM PACK PO SCH (09:19)
[2019-01-10] MEDS: ASPIRIN CHEW 81 MG TABLET PO SCH (09:20)
[2019-01-10] MEDS: POTASSIUM CHLORIDE 20 MEQ TABLET PO SCH ×3 (09:47→18:49)
[2019-01-10] MEDS: PROPOFOL 1,000 MG/100 ML BOTTLE IV SCH (12:09)
[2019-01-10 12:35] LABS: ABG Base Excess -1.7 MMOL/L (-2.5-2.5); ABG Oxygen Saturation 96.5 % (95-100); ABG PCO2 34.8 MM HG (35-48); ABG PH 7.417 (7.35-7.45); ABG PO2 74.9 MM HG (80-95); ABG TCO2 20.7 MMOL/L (23-27); Allen Test Positive; Pt O2 Delivery Device Ventilator
[2019-01-10] MEDS: INSULIN GLARGINE 100 UNIT/ML SUBCUT SCH (20:51)
[2019-01-10] MEDS: ATORVASTATIN 40 MG TABLET PO SCH (20:52)
[2019-01-11] MEDS: INSULIN LISPRO 100 UNIT/ML SUBCUT SCH ×6 (00:19→21:12)
[2019-01-11] MEDS: VANCOMYCIN INJ 1,000 MG in SODIUM CHLORIDE 0.9% 250 ML IV SCH ×2 (01:40→13:32)
[2019-01-11] MEDS: PIPERACILLIN/TAZOBACTAM 3,375 MG in SODIUM CHLORIDE 0.9% 100 ML IV SCH ×2 (01:42→09:17)
[2019-01-11 04:31] LABS: ABG Base Excess -1.6 MMOL/L (-2.5-2.5); ABG HCO3 21.4 MMOL/L (20-26); ABG Oxygen Saturation 97.2 % (95-100); ABG PCO2 30.7 MM HG (35-48); ABG PH 7.462 (7.35-7.45); ABG PO2 87.8 MM HG (80-95); ABG TCO2 22.4 MMOL/L (23-27); Allen Test Positive; Pt O2 Delivery Device Ventilator
[2019-01-11] MEDS: PROPOFOL 1,000 MG/100 ML BOTTLE IV SCH (05:10)
[2019-01-11 05:13] LABS: Basophils # 0.1 10*3/uL (0.0-0.2); Basophils % 0.3 % (0.0-0.8); Eosinophils # 0.1 10*3/uL (0.0-0.87); Eosinophils % 0.5 % (0.00-10.9); Hematocrit 29.8 VOL% (35.7-47.0); Hemoglobin 9.4 GM/DL (12.0-16.0); Immature Granulocytes % 2.9 %; Immature Granulocytes Absolute 0.59 #; Lymphocytes # 2.1 10*3/uL (1.4-4.0); Lymphocytes % 9.9 % (21.3-54.2); Mean Corpuscular HGB Conc 31.5 GM/DL (32-36); Mean Corpuscular Volume 85.4 FL (87-102); Mean Platelet Volume 10.7 FL (9.6-12.0); Monocytes % 2.8 % (1.7-12.7); Neutrophils % 83.6 % (38.7-73.9); Platelet Count 432 T/CUMM (130-400); Red Blood Count 3.49 MC/CUMM (3.8-5.5); Red Cell Distribution Width 16.8 % (9.3-17.3); White Blood Count 20.7 T/CUMM (4-12)
[2019-01-11 05:37] LABS: Band Neutrophils 3 % (0-10); Lymphocytes 9 % (20-55); Nucleated Red Blood Cells 1 (0-5); Platelet Estimate Adequate; Segmented Neutrophils 85 % (50-85); Total Cells Counted 100
[2019-01-11 05:38] LABS: Hypochromasia 1+
[2019-01-11] MEDS: LACTATED RINGERS 1,000 ML IV SCH ×3 (05:49→21:20)
[2019-01-11 05:53] LABS: Prealbumin 4.3 MG/DL (20-40)
[2019-01-11 06:02] LABS: Calcium 8.4 MG/DL (8.5-10.1); Osmolality,Calculated 290.1 MOS/KG (273-304)
[2019-01-11] MEDS: APIXABAN 2.5 MG TABLET PO SCH ×2 (08:21→21:13)
[2019-01-11] MEDS: ASPIRIN CHEW 81 MG TABLET PO SCH (08:21)
[2019-01-11] MEDS: POLYETHYLENE GLYCOL POWDER 17 GM PACK PO SCH (08:26)
[2019-01-11] MEDS: METOPROLOL TARTRATE 25 MG TABLET PO SCH ×2 (09:11→21:13)
[2019-01-11] MEDS ORDERED: POLYETHYLENE GLYCOL POWDER 17 GM PACK PO PRN (09:36)
[2019-01-11] MEDS: CEFTAROLINE 600 MG in SODIUM CHLORIDE 0.9% 100 ML IV SCH ×2 (11:32→18:38)
[2019-01-11] MEDS: ALBUTEROL/IPRATROPIUM 3 ML NEB RESP TX SCH ×2 (16:27→19:21)
[2019-01-11] MEDS: INSULIN GLARGINE 100 UNIT/ML SUBCUT SCH (21:12)
[2019-01-11] MEDS: ATORVASTATIN 40 MG TABLET PO SCH (21:13)
[2019-01-12] MEDS: ALBUTEROL/IPRATROPIUM 3 ML NEB RESP TX SCH ×4 (00:25→20:11)
[2019-01-12] MEDS: INSULIN LISPRO 100 UNIT/ML SUBCUT SCH ×6 (00:32→21:13)
[2019-01-12] MEDS: VANCOMYCIN INJ 1,000 MG in SODIUM CHLORIDE 0.9% 250 ML IV SCH ×2 (00:32→14:12)
[2019-01-12] MEDS: CEFTAROLINE 600 MG in SODIUM CHLORIDE 0.9% 100 ML IV SCH ×3 (03:04→19:26)
[2019-01-12 03:54] LABS: Calcium 8.7 MG/DL (8.5-10.1); Osmolality,Calculated 292.3 MOS/KG (273-304)
[2019-01-12] MEDS: MAGNESIUM SULF RIDER 2 GM in PREMIX 1 EACH IV PRN (04:48)
[2019-01-12] MEDS: LACTATED RINGERS 1,000 ML IV SCH (05:30)
[2019-01-12] MEDS ORDERED: FUROSEMIDE 40 MG/4 ML VIAL IV ONE (08:37)
[2019-01-12] MEDS: APIXABAN 2.5 MG TABLET PO SCH ×2 (09:20→21:13)
[2019-01-12] MEDS: ASPIRIN CHEW 81 MG TABLET PO SCH (09:20)
[2019-01-12] MEDS: glipiZIDE 10 MG TABLET PO SCH ×2 (09:20→16:57)
[2019-01-12] MEDS: METOPROLOL TARTRATE 25 MG TABLET PO SCH ×2 (09:21→21:12)
[2019-01-12] MEDS: ATORVASTATIN 40 MG TABLET PO SCH (21:12)
[2019-01-12] MEDS: INSULIN GLARGINE 100 UNIT/ML SUBCUT SCH (21:13)
[2019-01-12 21:46] LABS: ABG Base Excess 1.1 MMOL/L (-2.5-2.5); ABG HCO3 25.4 MMOL/L (20-26); ABG PCO2 35.5 MM HG (35-48); ABG PH 7.452 (7.35-7.45); ABG TCO2 22.6 MMOL/L (23-27); Allen Test Positive
[2019-01-13] MEDS: VANCOMYCIN INJ 1,000 MG in SODIUM CHLORIDE 0.9% 250 ML IV SCH ×2 (00:20→13:33)
[2019-01-13] MEDS: INSULIN LISPRO 100 UNIT/ML SUBCUT SCH ×6 (00:31→21:46)
[2019-01-13] MEDS: ALBUTEROL/IPRATROPIUM 3 ML NEB RESP TX SCH ×4 (01:51→19:53)
[2019-01-13] MEDS: CEFTAROLINE 600 MG in SODIUM CHLORIDE 0.9% 100 ML IV SCH ×3 (02:37→18:42)
[2019-01-13 04:25] LABS: Osmolality,Calculated 284.4 MOS/KG (273-304)
[2019-01-13] MEDS: ASPIRIN CHEW 81 MG TABLET PO SCH (08:27)
[2019-01-13] MEDS: METOPROLOL TARTRATE 25 MG TABLET PO SCH ×2 (08:27→21:46)
[2019-01-13] MEDS: glipiZIDE 10 MG TABLET PO SCH ×2 (08:27→18:31)
[2019-01-13] MEDS: APIXABAN 2.5 MG TABLET PO SCH ×2 (09:23→21:46)
[2019-01-13] MEDS ORDERED: PROPOFOL 1,000 MG/100 ML BOTTLE IV ONE (09:36)
[2019-01-13] MEDS ORDERED: SUCCINYLCHOLINE 200 MG/10 ML VIAL ONE (09:37)
[2019-01-13] MEDS ORDERED: SUCCINYLCHOLINE 200 MG/10 ML VIAL IV ONE (10:02)
[2019-01-13] MEDS: PROPOFOL 1,000 MG/100 ML BOTTLE IV SCH ×2 (10:35→21:44)
[2019-01-13 12:10] LABS: ABG Base Excess 0.5 MMOL/L (-2.5-2.5); ABG HCO3 24.3 MMOL/L (20-26); ABG Oxygen Saturation 97.5 % (95-100); ABG PCO2 35.6 MM HG (35-48); ABG PH 7.452 (7.35-7.45); ABG PO2 103.6 MM HG (80-95); ABG TCO2 25.4 MMOL/L (23-27)
[2019-01-13] MEDS: ATORVASTATIN 40 MG TABLET PO SCH (21:45)
[2019-01-13] MEDS: INSULIN GLARGINE 100 UNIT/ML SUBCUT SCH (21:46)
[2019-01-14] MEDS: INSULIN LISPRO 100 UNIT/ML SUBCUT SCH ×6 (00:49→20:37)
[2019-01-14] MEDS: VANCOMYCIN INJ 1,000 MG in SODIUM CHLORIDE 0.9% 250 ML IV SCH ×2 (00:49→12:00)
[2019-01-14] MEDS: ALBUTEROL/IPRATROPIUM 3 ML NEB RESP TX SCH ×4 (01:52→20:06)
[2019-01-14] MEDS: CEFTAROLINE 600 MG in SODIUM CHLORIDE 0.9% 100 ML IV SCH ×3 (04:20→18:34)
[2019-01-14 04:21] LABS: Allen Test Positive; Pt O2 Delivery Device Ventilator
[2019-01-14 04:23] LABS: ABG Base Excess 1.9 MMOL/L (-2.5-2.5); ABG HCO3 26.1 MMOL/L (20-26); ABG PCO2 28.2 MM HG (35-48); ABG PO2 73.1 MM HG (80-95); ABG TCO2 22.4 MMOL/L (23-27)
[2019-01-14 04:48] LABS: Calcium 8.6 MG/DL (8.5-10.1); Osmolality,Calculated 289.1 MOS/KG (273-304)
[2019-01-14] MEDS: METOPROLOL TARTRATE 25 MG TABLET PO SCH ×2 (09:21→20:37)
[2019-01-14] MEDS: ASPIRIN CHEW 81 MG TABLET PO SCH (09:21)
[2019-01-14] MEDS: APIXABAN 2.5 MG TABLET PO SCH ×2 (09:22→20:37)
[2019-01-14] MEDS: glipiZIDE 10 MG TABLET PO SCH ×2 (09:22→17:00)
[2019-01-14] MEDS: PROPOFOL 1,000 MG/100 ML BOTTLE IV SCH ×2 (10:00→20:39)
[2019-01-14] MEDS: ATORVASTATIN 40 MG TABLET PO SCH (20:37)
[2019-01-14] MEDS: INSULIN GLARGINE 100 UNIT/ML SUBCUT SCH (20:38)
[2019-01-15] MEDS: INSULIN LISPRO 100 UNIT/ML SUBCUT SCH ×6 (00:13→20:28)
[2019-01-15] MEDS: VANCOMYCIN INJ 1,000 MG in SODIUM CHLORIDE 0.9% 250 ML IV SCH ×2 (00:32→13:45)
[2019-01-15] MEDS: ALBUTEROL/IPRATROPIUM 3 ML NEB RESP TX SCH ×4 (02:01→19:30)
[2019-01-15] MEDS: CEFTAROLINE 600 MG in SODIUM CHLORIDE 0.9% 100 ML IV SCH ×3 (03:25→18:25)
[2019-01-15 03:27] LABS: Allen Test Positive; Pt O2 Delivery Device Ventilator
[2019-01-15 03:28] LABS: ABG Base Excess 0.4 MMOL/L (-2.5-2.5); ABG HCO3 24.4 MMOL/L (20-26); ABG PCO2 37.5 MM HG (35-48); ABG PH 7.431 (7.35-7.45); ABG PO2 126.8 MM HG (80-95); ABG TCO2 25.5 MMOL/L (23-27)
[2019-01-15 03:29] LABS: ABG Oxygen Saturation 98.6 % (95-100)
[2019-01-15 04:20] LABS: Basophils % 0.1 % (0.0-0.8); Eosinophils # 0.1 10*3/uL (0.0-0.87); Eosinophils % 0.6 % (0.00-10.9); Hemoglobin 7.7 GM/DL (12.0-16.0); Immature Granulocytes % 1.2 %; Immature Granulocytes Absolute 0.18 #; Lymphocytes # 1.4 10*3/uL (1.4-4.0); Lymphocytes % 9.8 % (21.3-54.2); Mean Corpuscular HGB Conc 30.8 GM/DL (32-36); Mean Corpuscular Volume 85.9 FL (87-102); Mean Platelet Volume 10.9 FL (9.6-12.0); Monocytes % 3.1 % (1.7-12.7); Neutrophils % 85.2 % (38.7-73.9); Platelet Count 471 T/CUMM (130-400); Red Blood Count 2.91 MC/CUMM (3.8-5.5); Red Cell Distribution Width 17.1 % (9.3-17.3); White Blood Count 14.5 T/CUMM (4-12)
[2019-01-15 04:43] LABS: Calcium 8.6 MG/DL (8.5-10.1); Osmolality,Calculated 288.8 MOS/KG (273-304)
[2019-01-15] MEDS: PROPOFOL 1,000 MG/100 ML BOTTLE IV SCH ×2 (08:00→15:51)
[2019-01-15] MEDS: glipiZIDE 10 MG TABLET PO SCH ×2 (08:56→16:55)
[2019-01-15] MEDS: methylPREDNISolone SOD SUC 40 MG/1 ML VIAL IV SCH ×2 (08:57→20:29)
[2019-01-15] MEDS: APIXABAN 2.5 MG TABLET PO SCH ×2 (08:57→20:29)
[2019-01-15] MEDS: METOPROLOL TARTRATE 25 MG TABLET PO SCH ×2 (08:57→20:29)
[2019-01-15] MEDS: ASPIRIN CHEW 81 MG TABLET PO SCH (08:57)
[2019-01-15] MEDS: LANSOPRAZOLE ODT 30 MG TABLET PER TUBE SCH (11:12)
[2019-01-15] MEDS: INSULIN GLARGINE 100 UNIT/ML SUBCUT SCH (20:28)
[2019-01-15] MEDS: ATORVASTATIN 40 MG TABLET PO SCH (20:29)
[2019-01-16] MEDS: VANCOMYCIN INJ 1,000 MG in SODIUM CHLORIDE 0.9% 250 ML IV SCH ×2 (00:20→12:59)
[2019-01-16] MEDS: INSULIN LISPRO 100 UNIT/ML SUBCUT SCH ×6 (00:20→20:20)
[2019-01-16] MEDS: PROPOFOL 1,000 MG/100 ML BOTTLE IV SCH ×3 (00:21→16:08)
[2019-01-16] MEDS: ALBUTEROL/IPRATROPIUM 3 ML NEB RESP TX SCH ×4 (01:14→19:26)
[2019-01-16] MEDS: CEFTAROLINE 600 MG in SODIUM CHLORIDE 0.9% 100 ML IV SCH ×3 (04:15→18:30)
[2019-01-16 04:24] LABS: Prealbumin 9.7 MG/DL (20-40)
[2019-01-16 04:29] LABS: ABG Base Excess 0.2 MMOL/L (-2.5-2.5); ABG HCO3 24.6 MMOL/L (20-26); ABG Oxygen Saturation 97.6 % (95-100); ABG PCO2 38.2 MM HG (35-48); ABG PH 7.417 (7.35-7.45); ABG PO2 98.6 MM HG (80-95); ABG TCO2 22.5 MMOL/L (23-27); Allen Test Positive; Pt O2 Delivery Device Ventilator
[2019-01-16] MEDS: APIXABAN 2.5 MG TABLET PO SCH ×2 (08:49→20:21)
[2019-01-16] MEDS: glipiZIDE 10 MG TABLET PO SCH ×2 (08:49→16:22)
[2019-01-16] MEDS: METOPROLOL TARTRATE 25 MG TABLET PO SCH ×2 (08:49→20:22)
[2019-01-16] MEDS: ASPIRIN CHEW 81 MG TABLET PO SCH (08:49)
[2019-01-16] MEDS: LANSOPRAZOLE ODT 30 MG TABLET PER TUBE SCH (08:50)
[2019-01-16] MEDS: methylPREDNISolone SOD SUC 40 MG/1 ML VIAL IV SCH ×2 (08:50→20:21)
[2019-01-16] MEDS: INSULIN GLARGINE 100 UNIT/ML SUBCUT SCH ×2 (10:39→20:21)
[2019-01-16] MEDS: ATORVASTATIN 40 MG TABLET PO SCH (20:23)
[2019-01-17] MEDS: INSULIN LISPRO 100 UNIT/ML SUBCUT SCH ×7 (00:30→23:54)
[2019-01-17] MEDS: PROPOFOL 1,000 MG/100 ML BOTTLE IV SCH ×4 (00:50→16:56)
[2019-01-17] MEDS: ALBUTEROL/IPRATROPIUM 3 ML NEB RESP TX SCH ×4 (00:50→19:33)
[2019-01-17] MEDS: VANCOMYCIN INJ 1,000 MG in SODIUM CHLORIDE 0.9% 250 ML IV SCH ×2 (01:19→14:01)
[2019-01-17] MEDS: CEFTAROLINE 600 MG in SODIUM CHLORIDE 0.9% 100 ML IV SCH ×3 (03:13→18:15)
[2019-01-17 04:03] LABS: ABG Base Excess 1.1 MMOL/L (-2.5-2.5); ABG HCO3 25.4 MMOL/L (20-26); ABG Oxygen Saturation 99.4 % (95-100); ABG PCO2 34.2 MM HG (35-48); ABG PH 7.465 (7.35-7.45); ABG TCO2 22.9 MMOL/L (23-27); Allen Test Positive; Pt O2 Delivery Device Ventilator
[2019-01-17 05:34] LABS: Basophils % 0.1 % (0.0-0.8); Hematocrit 25.5 VOL% (35.7-47.0); Hemoglobin 7.6 GM/DL (12.0-16.0); Immature Granulocytes % 1.4 %; Immature Granulocytes Absolute 0.11 #; Lymphocytes % 12.4 % (21.3-54.2); Mean Corpuscular HGB Conc 29.8 GM/DL (32-36); Mean Corpuscular Volume 91.4 FL (87-102); Mean Platelet Volume 10.3 FL (9.6-12.0); Monocytes % 3.4 % (1.7-12.7); Neutrophils % 82.7 % (38.7-73.9); Platelet Count 479 T/CUMM (130-400); Red Blood Count 2.79 MC/CUMM (3.8-5.5); Red Cell Distribution Width 17.2 % (9.3-17.3)
[2019-01-17 05:54] LABS: Calcium 8.4 MG/DL (8.5-10.1); Osmolality,Calculated 300.4 MOS/KG (273-304)
[2019-01-17] MEDS ORDERED: FUROSEMIDE 20 MG/2 ML VIAL IV ONE (07:51)
[2019-01-17] MEDS: ASPIRIN CHEW 81 MG TABLET PO SCH (08:32)
[2019-01-17] MEDS: predniSONE 20 MG TABLET PO SCH (08:32)
[2019-01-17] MEDS: APIXABAN 2.5 MG TABLET PO SCH ×2 (08:32→21:15)
[2019-01-17] MEDS: LANSOPRAZOLE ODT 30 MG TABLET PER TUBE SCH (08:32)
[2019-01-17] MEDS: glipiZIDE 10 MG TABLET PO SCH ×2 (08:32→16:28)
[2019-01-17] MEDS: METOPROLOL TARTRATE 25 MG TABLET PO SCH ×2 (08:33→21:14)
[2019-01-17] MEDS: INSULIN GLARGINE 100 UNIT/ML SUBCUT SCH (08:34)
[2019-01-17] MEDS: ATORVASTATIN 40 MG TABLET PO SCH (21:14)
[2019-01-18] MEDS ORDERED: DEXTROSE 10% 250 ML BAG IV PRN (00:04)
[2019-01-18] MEDS: PROPOFOL 1,000 MG/100 ML BOTTLE IV SCH ×2 (00:11→12:08)
[2019-01-18] MEDS: INSULIN GLARGINE 100 UNIT/ML SUBCUT SCH ×3 (00:12→20:08)
[2019-01-18] MEDS: ALBUTEROL/IPRATROPIUM 3 ML NEB RESP TX SCH ×4 (00:37→19:15)
[2019-01-18] MEDS: CEFTAROLINE 600 MG in SODIUM CHLORIDE 0.9% 100 ML IV SCH ×3 (03:07→18:09)
[2019-01-18 03:25] LABS: Basophils % 0.2 % (0.0-0.8); Eosinophils % 0.2 % (0.00-10.9); Hematocrit 24.2 VOL% (35.7-47.0); Hemoglobin 7.5 GM/DL (12.0-16.0); Immature Granulocytes % 1.1 %; Lymphocytes # 1.3 10*3/uL (1.4-4.0); Mean Corpuscular Volume 87.7 FL (87-102); Mean Platelet Volume 10.4 FL (9.6-12.0); Monocytes % 3.2 % (1.7-12.7); Neutrophils % 81.3 % (38.7-73.9); Platelet Count 444 T/CUMM (130-400); Red Blood Count 2.76 MC/CUMM (3.8-5.5); Red Cell Distribution Width 17.6 % (9.3-17.3); White Blood Count 9.5 T/CUMM (4-12)
[2019-01-18 03:39] LABS: Calcium 8.6 MG/DL (8.5-10.1)
[2019-01-18 03:47] LABS: ABG Base Excess 1.9 MMOL/L (-2.5-2.5); ABG PH 7.469 (7.35-7.45); ABG PO2 62.7 MM HG (80-95); ABG TCO2 23.8 MMOL/L (23-27); Allen Test Positive; Pt O2 Delivery Device Ventilator
[2019-01-18] MEDS: INSULIN LISPRO 100 UNIT/ML SUBCUT SCH ×5 (04:50→20:08)
[2019-01-18] MEDS: METOPROLOL TARTRATE 25 MG TABLET PO SCH ×2 (08:13→20:07)
[2019-01-18] MEDS: predniSONE 20 MG TABLET PO SCH (08:13)
[2019-01-18] MEDS: LANSOPRAZOLE ODT 30 MG TABLET PER TUBE SCH (08:13)
[2019-01-18] MEDS: APIXABAN 2.5 MG TABLET PO SCH ×2 (11:43→20:07)
[2019-01-18] MEDS: ASPIRIN CHEW 81 MG TABLET PO SCH (11:43)
[2019-01-18] MEDS: glipiZIDE 10 MG TABLET PO SCH ×2 (12:09→16:49)
[2019-01-18] MEDS: METOCLOPRAMIDE 10 MG/2 ML VIAL IV SCH ×2 (12:58→18:58)
[2019-01-18] MEDS: ALBUMIN 25% 12.5 GM in PREMIX 1 EACH IV SCH ×2 (14:00→20:08)
[2019-01-18] MEDS: VANCOMYCIN INJ 1,000 MG in SODIUM CHLORIDE 0.9% 250 ML IV SCH (15:53)
[2019-01-18] MEDS: ATORVASTATIN 40 MG TABLET PO SCH (20:07)
[2019-01-19] MEDS: METOCLOPRAMIDE 10 MG/2 ML VIAL IV SCH ×4 (00:25→18:07)
[2019-01-19] MEDS: INSULIN LISPRO 100 UNIT/ML SUBCUT SCH ×6 (00:28→20:13)
[2019-01-19] MEDS: ALBUTEROL/IPRATROPIUM 3 ML NEB RESP TX SCH ×4 (00:45→19:42)
[2019-01-19 03:52] LABS: ABG Base Excess 1.1 MMOL/L (-2.5-2.5); ABG HCO3 25.3 MMOL/L (20-26); ABG Oxygen Saturation 96.1 % (95-100); ABG PH 7.474 (7.35-7.45); ABG PO2 75.9 MM HG (80-95); ABG TCO2 21.8 MMOL/L (23-27); Allen Test Positive; Pt O2 Delivery Device Ventilator
[2019-01-19] MEDS: ALBUMIN 25% 12.5 GM in PREMIX 1 EACH IV SCH (04:35)
[2019-01-19 05:16] LABS: Calcium 8.2 MG/DL (8.5-10.1)
[2019-01-19] MEDS: glipiZIDE 10 MG TABLET PO SCH ×3 (08:36→16:09)
[2019-01-19] MEDS: INSULIN GLARGINE 100 UNIT/ML SUBCUT SCH ×2 (08:53→20:13)
[2019-01-19] MEDS: APIXABAN 2.5 MG TABLET PO SCH ×2 (08:54→20:13)
[2019-01-19] MEDS: predniSONE 20 MG TABLET PO SCH (08:54)
[2019-01-19] MEDS: ASPIRIN CHEW 81 MG TABLET PO SCH (08:54)
[2019-01-19] MEDS: METOPROLOL TARTRATE 25 MG TABLET PO SCH ×2 (08:55→20:13)
[2019-01-19] MEDS: LANSOPRAZOLE ODT 30 MG TABLET PER TUBE SCH (08:55)
[2019-01-19] MEDS ORDERED: FUROSEMIDE 40 MG/4 ML VIAL IV ONE (09:00)
[2019-01-19] MEDS: PROPOFOL 1,000 MG/100 ML BOTTLE IV SCH (10:30)
[2019-01-19] MEDS: VANCOMYCIN INJ 1,000 MG in SODIUM CHLORIDE 0.9% 250 ML IV SCH (15:44)
[2019-01-19] MEDS: CEFTAROLINE 600 MG in SODIUM CHLORIDE 0.9% 100 ML IV SCH (18:07)
[2019-01-19] MEDS: ACETAMINOPHEN 325 MG/10.15 ML UDCUP PO PRN (19:44)
[2019-01-19] MEDS: ATORVASTATIN 40 MG TABLET PO SCH (20:13)
[2019-01-20] MEDS: METOCLOPRAMIDE 10 MG/2 ML VIAL IV SCH ×4 (00:01→20:37)
[2019-01-20] MEDS: INSULIN LISPRO 100 UNIT/ML SUBCUT SCH ×6 (00:02→20:38)
[2019-01-20] MEDS: ALBUTEROL/IPRATROPIUM 3 ML NEB RESP TX SCH ×4 (00:22→19:13)
[2019-01-20] MEDS: CEFTAROLINE 600 MG in SODIUM CHLORIDE 0.9% 100 ML IV SCH ×3 (01:35→18:26)
[2019-01-20 04:34] LABS: Basophils % 0.1 % (0.0-0.8); Eosinophils % 0.4 % (0.00-10.9); Hematocrit 23.5 VOL% (35.7-47.0); Hemoglobin 7.2 GM/DL (12.0-16.0); Immature Granulocytes % 1.7 %; Immature Granulocytes Absolute 0.16 #; Lymphocytes # 1.8 10*3/uL (1.4-4.0); Lymphocytes % 19.2 % (21.3-54.2); Mean Corpuscular HGB Conc 30.6 GM/DL (32-36); Mean Platelet Volume 10.3 FL (9.6-12.0); Monocytes % 3.4 % (1.7-12.7); Neutrophils % 75.2 % (38.7-73.9); Platelet Count 398 T/CUMM (130-400); Red Blood Count 2.64 MC/CUMM (3.8-5.5); Red Cell Distribution Width 17.3 % (9.3-17.3); White Blood Count 9.5 T/CUMM (4-12)
[2019-01-20 04:53] LABS: ABG Base Excess 2.9 MMOL/L (-2.5-2.5); ABG PCO2 30.6 MM HG (35-48); ABG PH 7.524 (7.35-7.45); ABG PO2 67.2 MM HG (80-95); ABG TCO2 22.6 MMOL/L (23-27); Allen Test Positive; Pt O2 Delivery Device Ventilator
[2019-01-20 04:59] LABS: Calcium 8.7 MG/DL (8.5-10.1); Osmolality,Calculated 296.7 MOS/KG (273-304)
[2019-01-20] MEDS: POTASSIUM CHLORIDE RIDER 10 MEQ in PREMIX 1 EACH IV PRN ×2 (05:41→06:50)
[2019-01-20] MEDS: ACETAMINOPHEN 325 MG/10.15 ML UDCUP PO PRN ×2 (07:48→20:36)
[2019-01-20] MEDS: glipiZIDE 10 MG TABLET PO SCH ×2 (07:57→16:03)
[2019-01-20] MEDS: INSULIN GLARGINE 100 UNIT/ML SUBCUT SCH ×2 (08:18→20:37)
[2019-01-20] MEDS: APIXABAN 2.5 MG TABLET PO SCH ×2 (08:19→20:37)
[2019-01-20] MEDS: predniSONE 20 MG TABLET PO SCH (08:19)
[2019-01-20] MEDS: METOPROLOL TARTRATE 25 MG TABLET PO SCH ×2 (08:19→20:37)
[2019-01-20] MEDS: LANSOPRAZOLE ODT 30 MG TABLET PER TUBE SCH (08:19)
[2019-01-20] MEDS: ASPIRIN CHEW 81 MG TABLET PO SCH (08:20)
[2019-01-20] MEDS ORDERED: FUROSEMIDE 40 MG/4 ML VIAL IV ONE ×2 (08:55→22:00)
[2019-01-20] MEDS: PROPOFOL 1,000 MG/100 ML BOTTLE IV SCH ×2 (09:40→10:38)
[2019-01-20] MEDS ORDERED: SODIUM CHLORIDE 0.9% 1,000 ML IV PRN (13:29)
[2019-01-20] MEDS: VANCOMYCIN INJ 1,000 MG in SODIUM CHLORIDE 0.9% 250 ML IV SCH (15:58)
[2019-01-20] MEDS: ATORVASTATIN 40 MG TABLET PO SCH (20:37)
[2019-01-21] MEDS: INSULIN LISPRO 100 UNIT/ML SUBCUT SCH ×6 (00:02→20:19)
[2019-01-21] MEDS: ALBUTEROL/IPRATROPIUM 3 ML NEB RESP TX SCH ×5 (01:22→20:14)
[2019-01-21] MEDS: CEFTAROLINE 600 MG in SODIUM CHLORIDE 0.9% 100 ML IV SCH ×3 (01:49→18:03)
[2019-01-21] MEDS: ACETAMINOPHEN 325 MG/10.15 ML UDCUP PO PRN ×2 (01:49→20:24)
[2019-01-21 03:57] LABS: ABG Base Excess 1.8 MMOL/L (-2.5-2.5); ABG HCO3 25.9 MMOL/L (20-26); ABG Oxygen Saturation 94.3 % (95-100); ABG PCO2 33.8 MM HG (35-48); ABG PH 7.477 (7.35-7.45); ABG PO2 65.7 MM HG (80-95); ABG TCO2 22.6 MMOL/L (23-27); Allen Test Positive; Pt O2 Delivery Device Ventilator
[2019-01-21 04:01] LABS: Basophils % 0.2 % (0.0-0.8); Eosinophils # 0.1 10*3/uL (0.0-0.87); Eosinophils % 0.7 % (0.00-10.9); Hematocrit 30.6 VOL% (35.7-47.0); Hemoglobin 9.7 GM/DL (12.0-16.0); Immature Granulocytes % 1.6 %; Immature Granulocytes Absolute 0.16 #; Lymphocytes # 2.2 10*3/uL (1.4-4.0); Lymphocytes % 22.1 % (21.3-54.2); Mean Corpuscular HGB Conc 31.7 GM/DL (32-36); Mean Corpuscular Volume 86.4 FL (87-102); Monocytes % 5.4 % (1.7-12.7); Platelet Count 374 T/CUMM (130-400); Red Blood Count 3.54 MC/CUMM (3.8-5.5); Red Cell Distribution Width 16.3 % (9.3-17.3); White Blood Count 9.9 T/CUMM (4-12)
[2019-01-21 04:09] LABS: Calcium 8.2 MG/DL (8.5-10.1); Osmolality,Calculated 291.3 MOS/KG (273-304)
[2019-01-21] MEDS: POTASSIUM CHLORIDE RIDER 10 MEQ in PREMIX 1 EACH IV PRN ×2 (04:31→06:00)
[2019-01-21] MEDS: METOCLOPRAMIDE 10 MG/2 ML VIAL IV SCH ×3 (04:31→20:18)
[2019-01-21] MEDS: PROPOFOL 1,000 MG/100 ML BOTTLE IV SCH ×2 (04:32→11:07)
[2019-01-21] MEDS: ASPIRIN CHEW 81 MG TABLET PO SCH (09:00)
[2019-01-21] MEDS: predniSONE 20 MG TABLET PO SCH (09:00)
[2019-01-21] MEDS: glipiZIDE 10 MG TABLET PO SCH ×2 (09:00→15:39)
[2019-01-21] MEDS: LANSOPRAZOLE ODT 30 MG TABLET PER TUBE SCH (09:01)
[2019-01-21] MEDS: APIXABAN 2.5 MG TABLET PO SCH ×2 (09:01→20:18)
[2019-01-21] MEDS: METOPROLOL TARTRATE 25 MG TABLET PO SCH ×2 (09:01→20:18)
[2019-01-21] MEDS: INSULIN GLARGINE 100 UNIT/ML SUBCUT SCH ×2 (09:02→20:18)
[2019-01-21] MEDS: FUROSEMIDE 20 MG/2 ML VIAL IV SCH ×2 (09:02→15:36)
[2019-01-21] MEDS: VANCOMYCIN INJ 1,000 MG in SODIUM CHLORIDE 0.9% 250 ML IV SCH (15:34)
[2019-01-21] MEDS: ATORVASTATIN 40 MG TABLET PO SCH (20:18)
[2019-01-22] MEDS: INSULIN LISPRO 100 UNIT/ML SUBCUT SCH ×6 (00:27→21:05)
[2019-01-22] MEDS: ACETAMINOPHEN 325 MG/10.15 ML UDCUP PO PRN ×2 (00:46→21:09)
[2019-01-22] MEDS: CEFTAROLINE 600 MG in SODIUM CHLORIDE 0.9% 100 ML IV SCH ×3 (01:05→17:36)
[2019-01-22] MEDS: ALBUTEROL/IPRATROPIUM 3 ML NEB RESP TX SCH ×4 (01:49→19:32)
[2019-01-22] MEDS: PROPOFOL 1,000 MG/100 ML BOTTLE IV SCH ×3 (02:31→21:26)
[2019-01-22 04:51] LABS: ABG Base Excess 3.3 MMOL/L (-2.5-2.5); ABG HCO3 27.3 MMOL/L (20-26); ABG Oxygen Saturation 94.7 % (95-100); ABG PCO2 34.9 MM HG (35-48); ABG PH 7.487 (7.35-7.45); ABG PO2 68.6 MM HG (80-95); ABG TCO2 23.1 MMOL/L (23-27); Allen Test Positive; Pt O2 Delivery Device Ventilator
[2019-01-22 05:09] LABS: Calcium 8.6 MG/DL (8.5-10.1); Osmolality,Calculated 293.8 MOS/KG (273-304)
[2019-01-22 05:25] LABS: Prealbumin 17.6 MG/DL (20-40)
[2019-01-22] MEDS: METOCLOPRAMIDE 10 MG/2 ML VIAL IV SCH ×3 (05:49→21:04)
[2019-01-22] MEDS: predniSONE 20 MG TABLET PO SCH (09:13)
[2019-01-22] MEDS: LANSOPRAZOLE ODT 30 MG TABLET PER TUBE SCH (09:13)
[2019-01-22] MEDS: METOPROLOL TARTRATE 25 MG TABLET PO SCH ×2 (09:13→21:04)
[2019-01-22] MEDS: INSULIN GLARGINE 100 UNIT/ML SUBCUT SCH ×2 (09:14→21:05)
[2019-01-22] MEDS: ASPIRIN CHEW 81 MG TABLET PO SCH (09:14)
[2019-01-22] MEDS: APIXABAN 2.5 MG TABLET PO SCH ×2 (09:14→21:04)
[2019-01-22] MEDS: FUROSEMIDE 20 MG/2 ML VIAL IV SCH ×2 (09:14→17:32)
[2019-01-22] MEDS: glipiZIDE 10 MG TABLET PO SCH ×2 (09:14→17:32)
[2019-01-22] MEDS: VANCOMYCIN INJ 1,000 MG in SODIUM CHLORIDE 0.9% 250 ML IV SCH (15:03)
[2019-01-22] MEDS: ATORVASTATIN 40 MG TABLET PO SCH (21:04)
[2019-01-23] MEDS: ALBUTEROL/IPRATROPIUM 3 ML NEB RESP TX SCH ×4 (00:21→19:10)
[2019-01-23] MEDS: INSULIN LISPRO 100 UNIT/ML SUBCUT SCH ×6 (00:54→22:16)
[2019-01-23] MEDS: CEFTAROLINE 600 MG in SODIUM CHLORIDE 0.9% 100 ML IV SCH (01:00)
[2019-01-23 01:27] LABS: ABG Base Excess 4.1 MMOL/L (-2.5-2.5); ABG HCO3 28.1 MMOL/L (20-26); ABG Oxygen Saturation 96.3 % (95-100); ABG PH 7.509 (7.35-7.45); ABG PO2 71.9 MM HG (80-95); ABG TCO2 24.9 MMOL/L (23-27); Allen Test Positive; Pt O2 Delivery Device Ventilator
[2019-01-23 05:20] LABS: Calcium 8.3 MG/DL (8.5-10.1); Osmolality,Calculated 288.1 MOS/KG (273-304)
[2019-01-23] MEDS: POTASSIUM CHLORIDE RIDER 10 MEQ in PREMIX 1 EACH IV PRN ×2 (05:45→06:40)
[2019-01-23] MEDS: METOCLOPRAMIDE 10 MG/2 ML VIAL IV SCH (05:51)
[2019-01-23] MEDS: VANCOMYCIN INJ 1,000 MG in SODIUM CHLORIDE 0.9% 250 ML IV SCH (06:00)
[2019-01-23] MEDS: predniSONE 20 MG TABLET PO SCH (09:16)
[2019-01-23] MEDS: glipiZIDE 10 MG TABLET PO SCH ×2 (09:17→16:45)
[2019-01-23] MEDS: INSULIN GLARGINE 100 UNIT/ML SUBCUT SCH ×2 (09:17→22:17)
[2019-01-23] MEDS: METOPROLOL TARTRATE 25 MG TABLET PO SCH ×2 (09:17→22:18)
[2019-01-23] MEDS: LANSOPRAZOLE ODT 30 MG TABLET PER TUBE SCH (09:17)
[2019-01-23] MEDS: APIXABAN 2.5 MG TABLET PO SCH ×2 (09:17→22:17)
[2019-01-23] MEDS: ASPIRIN CHEW 81 MG TABLET PO SCH (09:17)
[2019-01-23] MEDS: FUROSEMIDE 20 MG/2 ML VIAL IV SCH ×2 (09:18→16:43)
[2019-01-23] MEDS: PROPOFOL 1,000 MG/100 ML BOTTLE IV SCH ×2 (12:05→19:11)
[2019-01-23] MEDS: ATORVASTATIN 40 MG TABLET PO SCH (22:17)
[2019-01-24] MEDS: ALBUTEROL/IPRATROPIUM 3 ML NEB RESP TX SCH ×4 (00:56→19:50)
[2019-01-24] MEDS: INSULIN LISPRO 100 UNIT/ML SUBCUT SCH ×6 (01:31→21:16)
[2019-01-24] MEDS: VANCOMYCIN INJ 1,000 MG in SODIUM CHLORIDE 0.9% 250 ML IV SCH (02:02)
[2019-01-24 03:49] LABS: ABG Base Excess 5.3 MMOL/L (-2.5-2.5); ABG HCO3 29.2 MMOL/L (20-26); ABG Oxygen Saturation 94.4 % (95-100); ABG PCO2 35.7 MM HG (35-48); ABG PO2 64.9 MM HG (80-95); ABG TCO2 26.2 MMOL/L (23-27)
[2019-01-24 04:57] LABS: Calcium 8.1 MG/DL (8.5-10.1); Osmolality,Calculated 284.4 MOS/KG (273-304)
[2019-01-24] MEDS: glipiZIDE 10 MG TABLET PO SCH (08:37)
[2019-01-24] MEDS: METOPROLOL TARTRATE 25 MG TABLET PO SCH ×2 (08:44→21:17)
[2019-01-24] MEDS: predniSONE 20 MG TABLET PO SCH (09:48)
[2019-01-24] MEDS: FUROSEMIDE 20 MG/2 ML VIAL IV SCH ×2 (09:48→16:33)
[2019-01-24] MEDS: INSULIN GLARGINE 100 UNIT/ML SUBCUT SCH ×2 (09:49→21:16)
[2019-01-24] MEDS: APIXABAN 2.5 MG TABLET PO SCH ×2 (09:49→21:16)
[2019-01-24] MEDS: ASPIRIN CHEW 81 MG TABLET PO SCH (09:49)
[2019-01-24] MEDS: LANSOPRAZOLE ODT 30 MG TABLET PER TUBE SCH (09:49)
[2019-01-24] MEDS: ACETAMINOPHEN 325 MG/10.15 ML UDCUP PO PRN (10:16)
[2019-01-24] MEDS: VANCOMYCIN INJ 1,250 MG in SODIUM CHLORIDE 0.9% 250 ML IV SCH (13:10)
[2019-01-24] MEDS: PROPOFOL 1,000 MG/100 ML BOTTLE IV SCH (14:08)
[2019-01-24] MEDS: ATORVASTATIN 40 MG TABLET PO SCH (21:17)
[2019-01-25] MEDS: ALBUTEROL/IPRATROPIUM 3 ML NEB RESP TX SCH ×4 (00:05→19:20)
[2019-01-25] MEDS: INSULIN LISPRO 100 UNIT/ML SUBCUT SCH ×6 (02:27→21:17)
[2019-01-25 03:53] LABS: Prealbumin 15.8 MG/DL (20-40)
[2019-01-25 04:33] LABS: ABG Base Excess 5.9 MMOL/L (-2.5-2.5); ABG HCO3 28.7 MMOL/L (20-26); ABG Oxygen Saturation 95.3 % (95-100); ABG PCO2 35.5 MM HG (35-48); ABG PH 7.526 (7.35-7.45); ABG TCO2 29.8 MMOL/L (23-27)
[2019-01-25] MEDS: MAGNESIUM SULF RIDER 2 GM in PREMIX 1 EACH IV PRN (04:33)
[2019-01-25] MEDS: VANCOMYCIN INJ 1,250 MG in SODIUM CHLORIDE 0.9% 250 ML IV SCH (07:26)
[2019-01-25] MEDS: METOPROLOL TARTRATE 25 MG TABLET PO SCH ×2 (08:06→21:18)
[2019-01-25] MEDS: FUROSEMIDE 20 MG/2 ML VIAL IV SCH ×2 (08:18→16:17)
[2019-01-25] MEDS: predniSONE 20 MG TABLET PO SCH (08:26)
[2019-01-25] MEDS: ASPIRIN CHEW 81 MG TABLET PO SCH (08:26)
[2019-01-25] MEDS: INSULIN GLARGINE 100 UNIT/ML SUBCUT SCH ×2 (08:26→21:17)
[2019-01-25] MEDS: APIXABAN 2.5 MG TABLET PO SCH ×2 (08:27→21:17)
[2019-01-25] MEDS: LANSOPRAZOLE ODT 30 MG TABLET PER TUBE SCH (08:27)
[2019-01-25] MEDS: PROPOFOL 1,000 MG/100 ML BOTTLE IV SCH (09:20)
[2019-01-25] MEDS: ACETAMINOPHEN 325 MG/10.15 ML UDCUP PO PRN ×2 (09:50→21:18)
[2019-01-25 09:54] LABS: Calcium 8.5 MG/DL (8.5-10.1); Osmolality,Calculated 294.1 MOS/KG (273-304)
[2019-01-25] MEDS: POTASSIUM CHLORIDE RIDER 10 MEQ in PREMIX 1 EACH IV PRN ×3 (10:26→13:40)
[2019-01-25] MEDS ORDERED: METOCLOPRAMIDE 10 MG/2 ML VIAL IV ONE (12:06)
[2019-01-25] MEDS: ATORVASTATIN 40 MG TABLET PO SCH (21:17)
[2019-01-26] MEDS: ALBUTEROL/IPRATROPIUM 3 ML NEB RESP TX SCH ×4 (00:16→19:32)
[2019-01-26] MEDS: INSULIN LISPRO 100 UNIT/ML SUBCUT SCH ×6 (00:27→20:24)
[2019-01-26] MEDS: VANCOMYCIN INJ 1,250 MG in SODIUM CHLORIDE 0.9% 250 ML IV SCH ×2 (01:21→08:17)
[2019-01-26 04:13] LABS: ABG Base Excess 5.6 MMOL/L (-2.5-2.5); ABG HCO3 29.4 MMOL/L (20-26); ABG Oxygen Saturation 95.2 % (95-100); ABG PO2 71.1 MM HG (80-95); ABG TCO2 25.4 MMOL/L (23-27); Allen Test Positive; Pt O2 Delivery Device Ventilator
[2019-01-26 04:21] LABS: Basophils % 0.1 % (0.0-0.8); Eosinophils % 0.2 % (0.00-10.9); Hematocrit 30.1 VOL% (35.7-47.0); Hemoglobin 9.2 GM/DL (12.0-16.0); Immature Granulocytes Absolute 0.09 #; Lymphocytes # 1.9 10*3/uL (1.4-4.0); Lymphocytes % 21.7 % (21.3-54.2); Mean Corpuscular HGB Conc 30.6 GM/DL (32-36); Mean Corpuscular Volume 87.8 FL (87-102); Mean Platelet Volume 10.8 FL (9.6-12.0); Monocytes % 6.4 % (1.7-12.7); Neutrophils % 70.6 % (38.7-73.9); Platelet Count 459 T/CUMM (130-400); Red Blood Count 3.43 MC/CUMM (3.8-5.5); Red Cell Distribution Width 15.7 % (9.3-17.3); White Blood Count 8.8 T/CUMM (4-12)
[2019-01-26] MEDS: PROPOFOL 1,000 MG/100 ML BOTTLE IV SCH ×2 (04:23→09:47)
[2019-01-26 04:33] LABS: Calcium 8.2 MG/DL (8.5-10.1); Osmolality,Calculated 293.1 MOS/KG (273-304)
[2019-01-26] MEDS: METOPROLOL TARTRATE 25 MG TABLET PO SCH ×2 (08:15→20:24)
[2019-01-26] MEDS: predniSONE 20 MG TABLET PO SCH (08:15)
[2019-01-26] MEDS: APIXABAN 2.5 MG TABLET PO SCH ×2 (08:16→20:24)
[2019-01-26] MEDS: ASPIRIN CHEW 81 MG TABLET PO SCH (08:16)
[2019-01-26] MEDS: LANSOPRAZOLE ODT 30 MG TABLET PER TUBE SCH (08:16)
[2019-01-26] MEDS: INSULIN GLARGINE 100 UNIT/ML SUBCUT SCH ×2 (08:16→20:25)
[2019-01-26] MEDS: FUROSEMIDE 20 MG/2 ML VIAL IV SCH (08:17)
[2019-01-26] MEDS: FUROSEMIDE 40 MG/4 ML VIAL IV SCH (09:12)
[2019-01-26] MEDS: POTASSIUM CHLORIDE RIDER 10 MEQ in PREMIX 1 EACH IV PRN ×2 (11:28→13:32)
[2019-01-26] MEDS: ATORVASTATIN 40 MG TABLET PO SCH (20:24)
[2019-01-27] MEDS: PROPOFOL 1,000 MG/100 ML BOTTLE IV SCH ×3 (00:04→23:15)
[2019-01-27] MEDS: INSULIN LISPRO 100 UNIT/ML SUBCUT SCH ×6 (00:17→20:54)
[2019-01-27] MEDS: ALBUTEROL/IPRATROPIUM 3 ML NEB RESP TX SCH ×4 (01:46→20:06)
[2019-01-27 04:17] LABS: ABG Base Excess 4.8 MMOL/L (-2.5-2.5); ABG HCO3 28.7 MMOL/L (20-26); ABG Oxygen Saturation 96.6 % (95-100); ABG PCO2 38.1 MM HG (35-48); ABG PH 7.482 (7.35-7.45); ABG PO2 78.7 MM HG (80-95); ABG TCO2 26.2 MMOL/L (23-27); Allen Test Positive; Pt O2 Delivery Device Ventilator
[2019-01-27] MEDS: predniSONE 20 MG TABLET PO SCH (08:54)
[2019-01-27] MEDS: ASPIRIN CHEW 81 MG TABLET PO SCH (08:55)
[2019-01-27] MEDS: APIXABAN 2.5 MG TABLET PO SCH ×2 (08:55→20:53)
[2019-01-27] MEDS: INSULIN GLARGINE 100 UNIT/ML SUBCUT SCH ×2 (08:55→20:52)
[2019-01-27] MEDS: METOPROLOL TARTRATE 25 MG TABLET PO SCH ×2 (08:55→20:53)
[2019-01-27] MEDS: FUROSEMIDE 40 MG/4 ML VIAL IV SCH (08:56)
[2019-01-27] MEDS: LANSOPRAZOLE ODT 30 MG TABLET PER TUBE SCH (08:56)
[2019-01-27] MEDS: VANCOMYCIN INJ 1,250 MG in SODIUM CHLORIDE 0.9% 250 ML IV SCH (08:57)
[2019-01-27] MEDS: ACETAMINOPHEN 325 MG/10.15 ML UDCUP PO PRN (11:55)
[2019-01-27] MEDS ORDERED: fentaNYL INJ 1,250 MCG in SODIUM CHLORIDE 0.9% 225 ML IV PRN (11:57)
[2019-01-27] MEDS: ATORVASTATIN 40 MG TABLET PO SCH (20:53)
[2019-01-28] MEDS: INSULIN LISPRO 100 UNIT/ML SUBCUT SCH ×6 (00:33→21:01)
[2019-01-28] MEDS: ALBUTEROL/IPRATROPIUM 3 ML NEB RESP TX SCH ×4 (02:25→19:29)
[2019-01-28] MEDS ORDERED: diphenhydrAMINE 50 MG/1 ML VIAL IV ONE (03:46)
[2019-01-28] MEDS ORDERED: methylPREDNISolone SOD SUC 125 MG/2 ML VIAL IV ONE (03:46)
[2019-01-28] MEDS ORDERED: FAMOTIDINE INJ 40 MG in SODIUM CHLORIDE 0.9% 100 ML IV ONE (04:00)
[2019-01-28 05:17] LABS: Basophils % 0.3 % (0.0-0.8); Eosinophils # 0.1 10*3/uL (0.0-0.87); Eosinophils % 0.4 % (0.00-10.9); Hematocrit 28.7 VOL% (35.7-47.0); Hemoglobin 8.6 GM/DL (12.0-16.0); Immature Granulocytes % 0.7 %; Immature Granulocytes Absolute 0.08 #; Lymphocytes # 2.5 10*3/uL (1.4-4.0); Lymphocytes % 20.4 % (21.3-54.2); Mean Corpuscular Volume 89.4 FL (87-102); Mean Platelet Volume 10.3 FL (9.6-12.0); Monocytes % 7.2 % (1.7-12.7); Platelet Count 453 T/CUMM (130-400); Red Blood Count 3.21 MC/CUMM (3.8-5.5); Red Cell Distribution Width 15.8 % (9.3-17.3)
[2019-01-28 05:40] LABS: Calcium 8.2 MG/DL (8.5-10.1); Osmolality,Calculated 284.7 MOS/KG (273-304)
[2019-01-28] MEDS: METOPROLOL TARTRATE 25 MG TABLET PO SCH ×2 (08:24→21:03)
[2019-01-28] MEDS: ASPIRIN CHEW 81 MG TABLET PO SCH (09:05)
[2019-01-28] MEDS: predniSONE 20 MG TABLET PO SCH (09:06)
[2019-01-28] MEDS: APIXABAN 2.5 MG TABLET PO SCH ×2 (09:06→21:02)
[2019-01-28] MEDS: LANSOPRAZOLE ODT 30 MG TABLET PER TUBE SCH (09:07)
[2019-01-28] MEDS: FUROSEMIDE 40 MG/4 ML VIAL IV SCH (09:07)
[2019-01-28] MEDS: INSULIN GLARGINE 100 UNIT/ML SUBCUT SCH ×2 (09:07→21:02)
[2019-01-28] MEDS: VANCOMYCIN INJ 1,250 MG in SODIUM CHLORIDE 0.9% 250 ML IV SCH (09:09)
[2019-01-28] MEDS: PROPOFOL 1,000 MG/100 ML BOTTLE IV SCH ×3 (11:58→21:27)
[2019-01-28] MEDS: ATORVASTATIN 40 MG TABLET PO SCH (21:02)
[2019-01-29] MEDS: INSULIN LISPRO 100 UNIT/ML SUBCUT SCH ×6 (00:14→20:26)
[2019-01-29] MEDS: ALBUTEROL/IPRATROPIUM 3 ML NEB RESP TX SCH ×4 (00:57→19:41)
[2019-01-29] MEDS: PROPOFOL 1,000 MG/100 ML BOTTLE IV SCH ×3 (02:26→22:33)
[2019-01-29 04:50] LABS: Prealbumin 17.8 MG/DL (20-40)
[2019-01-29] MEDS: INSULIN GLARGINE 100 UNIT/ML SUBCUT SCH ×2 (09:03→20:26)
[2019-01-29] MEDS: ASPIRIN CHEW 81 MG TABLET PO SCH (09:04)
[2019-01-29] MEDS: LANSOPRAZOLE ODT 30 MG TABLET PER TUBE SCH (09:04)
[2019-01-29] MEDS: APIXABAN 2.5 MG TABLET PO SCH ×2 (09:04→20:26)
[2019-01-29] MEDS: predniSONE 20 MG TABLET PO SCH (09:04)
[2019-01-29] MEDS: METOPROLOL TARTRATE 25 MG TABLET PO SCH ×2 (09:05→20:27)
[2019-01-29] MEDS: FUROSEMIDE 40 MG/4 ML VIAL IV SCH (09:05)
[2019-01-29] MEDS: VANCOMYCIN INJ 1,250 MG in SODIUM CHLORIDE 0.9% 250 ML IV SCH (10:07)
[2019-01-29] MEDS: WHEAT DEXTRIN POWDER 244 GM BOTTLE PO SCH ×2 (15:12→20:27)
[2019-01-29] MEDS: ACETAMINOPHEN 325 MG/10.15 ML UDCUP PO PRN ×2 (17:15→22:33)
[2019-01-29] MEDS: ATORVASTATIN 40 MG TABLET PO SCH (20:26)
[2019-01-30] MEDS: INSULIN LISPRO 100 UNIT/ML SUBCUT SCH ×6 (00:29→23:12)
[2019-01-30] MEDS: ALBUTEROL/IPRATROPIUM 3 ML NEB RESP TX SCH ×4 (00:49→19:38)
[2019-01-30] MEDS: ACETAMINOPHEN 325 MG/10.15 ML UDCUP PO PRN ×3 (03:29→22:47)
[2019-01-30 03:59] LABS: Basophils % 0.2 % (0.0-0.8); Eosinophils # 0.1 10*3/uL (0.0-0.87); Eosinophils % 0.5 % (0.00-10.9); Hematocrit 29.6 VOL% (35.7-47.0); Hemoglobin 9.1 GM/DL (12.0-16.0); Immature Granulocytes % 0.6 %; Immature Granulocytes Absolute 0.06 #; Lymphocytes # 1.9 10*3/uL (1.4-4.0); Lymphocytes % 19.1 % (21.3-54.2); Mean Corpuscular HGB Conc 30.7 GM/DL (32-36); Mean Corpuscular Volume 87.6 FL (87-102); Mean Platelet Volume 10.6 FL (9.6-12.0); Monocytes % 5.8 % (1.7-12.7); Neutrophils % 73.8 % (38.7-73.9); Platelet Count 550 T/CUMM (130-400); Red Blood Count 3.38 MC/CUMM (3.8-5.5); Red Cell Distribution Width 15.6 % (9.3-17.3); White Blood Count 9.8 T/CUMM (4-12)
[2019-01-30 04:10] LABS: PT Patient Result 10.7 SECS (9.6-12.2)
[2019-01-30 04:13] LABS: ABG Base Excess 7.4 MMOL/L (-2.5-2.5); ABG HCO3 31.2 MMOL/L (20-26); ABG Oxygen Saturation 96.9 % (95-100); ABG PCO2 43.8 MM HG (35-48); ABG PO2 80.3 MM HG (80-95); ABG TCO2 29.1 MMOL/L (23-27); Allen Test Positive; Pt O2 Delivery Device Ventilator
[2019-01-30 04:24] LABS: Calcium 8.9 MG/DL (8.5-10.1); Osmolality,Calculated 294.1 MOS/KG (273-304)
[2019-01-30] MEDS: MAGNESIUM SULF RIDER 2 GM in PREMIX 1 EACH IV PRN (04:56)
[2019-01-30] MEDS: PROPOFOL 1,000 MG/100 ML BOTTLE IV SCH ×2 (08:34→18:02)
[2019-01-30] MEDS: INSULIN GLARGINE 100 UNIT/ML SUBCUT SCH ×2 (09:20→23:12)
[2019-01-30] MEDS: ASPIRIN CHEW 81 MG TABLET PO SCH (09:20)
[2019-01-30] MEDS: APIXABAN 2.5 MG TABLET PO SCH (09:21)
[2019-01-30] MEDS: LANSOPRAZOLE ODT 30 MG TABLET PER TUBE SCH (09:21)
[2019-01-30] MEDS: FUROSEMIDE 40 MG/4 ML VIAL IV SCH (09:23)
[2019-01-30] MEDS: predniSONE 20 MG TABLET PO SCH (09:23)
[2019-01-30] MEDS: WHEAT DEXTRIN POWDER 244 GM BOTTLE PO SCH ×3 (09:29→22:49)
[2019-01-30] MEDS: METOPROLOL TARTRATE 25 MG TABLET PO SCH ×2 (09:31→22:49)
[2019-01-30] MEDS: VANCOMYCIN INJ 1,250 MG in SODIUM CHLORIDE 0.9% 250 ML IV SCH (09:31)
[2019-01-30] MEDS: ATORVASTATIN 40 MG TABLET PO SCH (22:49)
[2019-01-31] MEDS: ALBUTEROL/IPRATROPIUM 3 ML NEB RESP TX SCH ×4 (01:51→19:27)
[2019-01-31] MEDS: INSULIN LISPRO 100 UNIT/ML SUBCUT SCH ×6 (02:56→21:15)
[2019-01-31 04:09] LABS: Basophils % 0.2 % (0.0-0.8); Eosinophils % 0.4 % (0.00-10.9); Hematocrit 29.2 VOL% (35.7-47.0); Hemoglobin 8.9 GM/DL (12.0-16.0); Immature Granulocytes Absolute 0.08 #; Lymphocytes # 3.1 10*3/uL (1.4-4.0); Lymphocytes % 37.4 % (21.3-54.2); Mean Corpuscular HGB Conc 30.5 GM/DL (32-36); Mean Corpuscular Volume 88.8 FL (87-102); Monocytes % 9.4 % (1.7-12.7); Neutrophils % 51.6 % (38.7-73.9); Platelet Count 519 T/CUMM (130-400); Red Blood Count 3.29 MC/CUMM (3.8-5.5); White Blood Count 8.3 T/CUMM (4-12)
[2019-01-31 04:18] LABS: Partial Thromboplastin Time 24.7 SECS (20.8-36.0)
[2019-01-31 04:24] LABS: Calcium 8.5 MG/DL (8.5-10.1); Osmolality,Calculated 292.3 MOS/KG (273-304)
[2019-01-31 05:15] LABS: ABG HCO3 30.8 MMOL/L (20-26); ABG Oxygen Saturation 97.2 % (95-100); ABG PCO2 48.1 MM HG (35-48); ABG PH 7.434 (7.35-7.45); ABG TCO2 29.6 MMOL/L (23-27)
[2019-01-31] MEDS: PROPOFOL 1,000 MG/100 ML BOTTLE IV SCH ×3 (05:25→20:05)
[2019-01-31] MEDS ORDERED: LIDOCAINE 2% VISCOUS 100 ML BOTTLE SWISH/SPIT ONE (07:30)
[2019-01-31] MEDS ORDERED: MIDAZOLAM 2 MG/2 ML VIAL IV ONE (07:30)
[2019-01-31] MEDS ORDERED: LIDOCAINE 1% 20 ML VIAL MISC INJ ONE (07:30)
[2019-01-31] MEDS ORDERED: LIDOCAINE 2% 20 ML VIAL RESP TX ONE (07:30)
[2019-01-31] MEDS: APIXABAN 2.5 MG TABLET PO SCH (08:00)
[2019-01-31] MEDS: INSULIN GLARGINE 100 UNIT/ML SUBCUT SCH ×2 (08:25→21:15)
[2019-01-31] MEDS: FUROSEMIDE 40 MG/4 ML VIAL IV SCH (08:28)
[2019-01-31] MEDS: LANSOPRAZOLE ODT 30 MG TABLET PER TUBE SCH (10:00)
[2019-01-31] MEDS: ASPIRIN CHEW 81 MG TABLET PO SCH (10:00)
[2019-01-31] MEDS: predniSONE 20 MG TABLET PO SCH (10:00)
[2019-01-31] MEDS: METOPROLOL TARTRATE 25 MG TABLET PO SCH ×2 (10:00→20:56)
[2019-01-31] MEDS: WHEAT DEXTRIN POWDER 244 GM BOTTLE PO SCH ×3 (10:00→20:56)
[2019-01-31] MEDS: VANCOMYCIN INJ 1,250 MG in SODIUM CHLORIDE 0.9% 250 ML IV SCH (11:57)
[2019-01-31] MEDS: MENTHOL/ZINC OXIDE OINT 71 GM JAR TOP SCH ×2 (16:09→20:05)
[2019-01-31] MEDS: ATORVASTATIN 40 MG TABLET PO SCH (20:56)
[2019-02-01] MEDS: INSULIN LISPRO 100 UNIT/ML SUBCUT SCH ×7 (00:18→23:50)
[2019-02-01] MEDS: ALBUTEROL/IPRATROPIUM 3 ML NEB RESP TX SCH ×4 (01:21→19:50)
[2019-02-01] MEDS: PROPOFOL 1,000 MG/100 ML BOTTLE IV SCH ×2 (01:58→09:39)
[2019-02-01 03:22] LABS: ABG Base Excess 6.5 MMOL/L (-2.5-2.5); ABG HCO3 30.3 MMOL/L (20-26); ABG Oxygen Saturation 99.3 % (95-100); ABG PCO2 49.2 MM HG (35-48); ABG TCO2 29.3 MMOL/L (23-27); Allen Test Positive; Pt O2 Delivery Device Ventilator
[2019-02-01 04:03] LABS: Basophils % 0.4 % (0.0-0.8); Eosinophils # 0.1 10*3/uL (0.0-0.87); Eosinophils % 1.1 % (0.00-10.9); Hematocrit 27.9 VOL% (35.7-47.0); Hemoglobin 8.3 GM/DL (12.0-16.0); Immature Granulocytes % 0.7 %; Immature Granulocytes Absolute 0.07 #; Lymphocytes # 1.5 10*3/uL (1.4-4.0); Lymphocytes % 15.4 % (21.3-54.2); Mean Corpuscular HGB Conc 29.7 GM/DL (32-36); Mean Corpuscular Volume 90.6 FL (87-102); Mean Platelet Volume 10.2 FL (9.6-12.0); Monocytes % 7.5 % (1.7-12.7); Neutrophils % 74.9 % (38.7-73.9); Platelet Count 475 T/CUMM (130-400); Red Blood Count 3.08 MC/CUMM (3.8-5.5)
[2019-02-01 04:16] LABS: Calcium 8.5 MG/DL (8.5-10.1); Osmolality,Calculated 289.8 MOS/KG (273-304)
[2019-02-01 04:21] LABS: Prealbumin 21.4 MG/DL (20-40)
[2019-02-01] MEDS ORDERED: ceFAZolin 1,000 MG in SYRINGE 1 EACH IV ONE ×2 (06:33→07:30)
[2019-02-01] MEDS: INSULIN GLARGINE 100 UNIT/ML SUBCUT SCH ×2 (08:21→20:13)
[2019-02-01] MEDS: ASPIRIN CHEW 81 MG TABLET PO SCH (09:22)
[2019-02-01] MEDS: WHEAT DEXTRIN POWDER 244 GM BOTTLE PO SCH ×3 (09:22→20:40)
[2019-02-01] MEDS: METOPROLOL TARTRATE 25 MG TABLET PO SCH ×2 (09:22→20:13)
[2019-02-01] MEDS: PANTOPRAZOLE 40 MG VIAL IV SCH (09:40)
[2019-02-01] MEDS: MENTHOL/ZINC OXIDE OINT 71 GM JAR TOP SCH ×2 (09:42→20:13)
[2019-02-01] MEDS: FUROSEMIDE 40 MG/4 ML VIAL IV SCH (09:43)
[2019-02-01] MEDS: MAGNESIUM SULF RIDER 2 GM in PREMIX 1 EACH IV PRN (09:44)
[2019-02-01] MEDS: POTASSIUM CHLORIDE RIDER 10 MEQ in PREMIX 1 EACH IV PRN ×2 (09:51→11:26)
[2019-02-01] MEDS: VANCOMYCIN INJ 1,250 MG in SODIUM CHLORIDE 0.9% 250 ML IV SCH (09:51)
[2019-02-01] MEDS: ATORVASTATIN 40 MG TABLET PO SCH (20:13)
[2019-02-02] MEDS: ALBUTEROL/IPRATROPIUM 3 ML NEB RESP TX SCH ×4 (01:05→19:40)
[2019-02-02] MEDS: INSULIN LISPRO 100 UNIT/ML SUBCUT SCH ×5 (04:16→21:06)
[2019-02-02] MEDS ORDERED: ceFAZolin 1,000 MG in SYRINGE 1 EACH IV ONE (06:30)
[2019-02-02] MEDS ORDERED: PROPOFOL 200 MG/20 ML VIAL IV ONE (09:00)
[2019-02-02] MEDS ORDERED: LIDOCAINE 2% 5 ML VIAL ONE (09:00)
[2019-02-02] MEDS: VANCOMYCIN INJ 1,250 MG in SODIUM CHLORIDE 0.9% 250 ML IV SCH (09:40)
[2019-02-02] MEDS: INSULIN GLARGINE 100 UNIT/ML SUBCUT SCH ×2 (09:40→21:06)
[2019-02-02] MEDS: PANTOPRAZOLE 40 MG VIAL IV SCH (09:40)
[2019-02-02] MEDS: FUROSEMIDE 40 MG/4 ML VIAL IV SCH (09:43)
[2019-02-02] MEDS: MENTHOL/ZINC OXIDE OINT 71 GM JAR TOP SCH ×2 (09:43→21:08)
[2019-02-02] MEDS: PROPOFOL 1,000 MG/100 ML BOTTLE IV SCH (12:00)
[2019-02-02] MEDS: WHEAT DEXTRIN POWDER 244 GM BOTTLE PO SCH ×3 (12:00→21:09)
[2019-02-02] MEDS: ASPIRIN CHEW 81 MG TABLET PO SCH (12:00)
[2019-02-02] MEDS: METOPROLOL TARTRATE 25 MG TABLET PO SCH ×2 (12:00→21:07)
[2019-02-02 12:24] LABS: Basophils # 0.1 10*3/uL (0.0-0.2); Basophils % 0.5 % (0.0-0.8); Eosinophils # 0.1 10*3/uL (0.0-0.87); Eosinophils % 1.2 % (0.00-10.9); Hematocrit 28.1 VOL% (35.7-47.0); Hemoglobin 8.5 GM/DL (12.0-16.0); Immature Granulocytes % 0.4 %; Immature Granulocytes Absolute 0.04 #; Lymphocytes # 1.3 10*3/uL (1.4-4.0); Lymphocytes % 13.7 % (21.3-54.2); Mean Corpuscular HGB Conc 30.2 GM/DL (32-36); Mean Corpuscular Volume 89.2 FL (87-102); Mean Platelet Volume 9.7 FL (9.6-12.0); Monocytes % 6.1 % (1.7-12.7); Neutrophils % 78.1 % (38.7-73.9); Platelet Count 437 T/CUMM (130-400); Red Blood Count 3.15 MC/CUMM (3.8-5.5); Red Cell Distribution Width 15.4 % (9.3-17.3); White Blood Count 9.1 T/CUMM (4-12)
[2019-02-02 12:54] LABS: Albumin 1.9 G/DL (3.4-5.0); Bilirubin,Total 0.4 MG/DL (0.2-1.0); Calcium 8.6 MG/DL (8.5-10.1); Osmolality,Calculated 282.4 MOS/KG (273-304); Total Protein 6.2 G/DL (6.4-8.3)
[2019-02-02] MEDS: POTASSIUM CHLORIDE RIDER 10 MEQ in PREMIX 1 EACH IV PRN ×4 (15:48→19:18)
[2019-02-02] MEDS: ATORVASTATIN 40 MG TABLET PO SCH (21:08)
[2019-02-03] MEDS: POTASSIUM CHLORIDE RIDER 10 MEQ in PREMIX 1 EACH IV PRN ×2 (00:24→01:37)
[2019-02-03] MEDS: INSULIN LISPRO 100 UNIT/ML SUBCUT SCH ×6 (00:43→20:37)
[2019-02-03] MEDS: ALBUTEROL/IPRATROPIUM 3 ML NEB RESP TX SCH ×4 (01:12→19:14)
[2019-02-03] MEDS: ACETAMINOPHEN 325 MG/10.15 ML UDCUP PO PRN ×3 (01:57→20:37)
[2019-02-03 04:06] LABS: Basophils % 0.4 % (0.0-0.8); Eosinophils # 0.1 10*3/uL (0.0-0.87); Eosinophils % 0.9 % (0.00-10.9); Hematocrit 26.8 VOL% (35.7-47.0); Hemoglobin 8.2 GM/DL (12.0-16.0); Immature Granulocytes % 0.4 %; Immature Granulocytes Absolute 0.04 #; Lymphocytes # 1.4 10*3/uL (1.4-4.0); Lymphocytes % 14.5 % (21.3-54.2); Mean Corpuscular HGB Conc 30.6 GM/DL (32-36); Mean Corpuscular Volume 88.4 FL (87-102); Mean Platelet Volume 9.7 FL (9.6-12.0); Monocytes % 5.9 % (1.7-12.7); Neutrophils % 77.9 % (38.7-73.9); Platelet Count 432 T/CUMM (130-400); Red Blood Count 3.03 MC/CUMM (3.8-5.5); Red Cell Distribution Width 15.3 % (9.3-17.3); White Blood Count 9.3 T/CUMM (4-12)
[2019-02-03 04:24] LABS: Albumin 1.9 G/DL (3.4-5.0); Bilirubin,Total 0.4 MG/DL (0.2-1.0); Calcium 8.9 MG/DL (8.5-10.1); Osmolality,Calculated 282.7 MOS/KG (273-304)
[2019-02-03 04:41] LABS: ABG Base Excess 3.4 MMOL/L (-2.5-2.5); ABG HCO3 26.7 MMOL/L (20-26); ABG Oxygen Saturation 97.7 % (95-100); ABG PCO2 35.6 MM HG (35-48); ABG PH 7.493 (7.35-7.45); ABG PO2 98.4 MM HG (80-95); ABG TCO2 27.8 MMOL/L (23-27); Allen Test Positive; Pt O2 Delivery Device Ventilator
[2019-02-03] MEDS: INSULIN GLARGINE 100 UNIT/ML SUBCUT SCH ×2 (08:46→20:36)
[2019-02-03] MEDS: METOPROLOL TARTRATE 25 MG TABLET PO SCH ×2 (08:47→20:38)
[2019-02-03] MEDS: predniSONE 20 MG TABLET PO SCH (08:47)
[2019-02-03] MEDS: ASPIRIN CHEW 81 MG TABLET PO SCH (08:47)
[2019-02-03] MEDS: APIXABAN 2.5 MG TABLET PO SCH ×2 (08:47→20:38)
[2019-02-03] MEDS: WHEAT DEXTRIN POWDER 244 GM BOTTLE PO SCH ×3 (08:48→20:38)
[2019-02-03] MEDS: VANCOMYCIN INJ 1,250 MG in SODIUM CHLORIDE 0.9% 250 ML IV SCH (08:48)
[2019-02-03] MEDS: MENTHOL/ZINC OXIDE OINT 71 GM JAR TOP SCH ×2 (08:48→20:38)
[2019-02-03] MEDS: LANSOPRAZOLE ODT 30 MG TABLET PEG SCH ×2 (08:48→20:38)
[2019-02-03] MEDS: FUROSEMIDE 40 MG/4 ML VIAL IV SCH (08:49)
[2019-02-03] MEDS: PROPOFOL 1,000 MG/100 ML BOTTLE IV SCH (10:13)
[2019-02-03] MEDS: ATORVASTATIN 40 MG TABLET PO SCH (20:38)
[2019-02-04] MEDS: INSULIN LISPRO 100 UNIT/ML SUBCUT SCH ×6 (00:02→20:30)
[2019-02-04] MEDS: ALBUTEROL/IPRATROPIUM 3 ML NEB RESP TX SCH ×4 (00:08→20:36)
[2019-02-04 04:23] LABS: ABG Base Excess 8.7 MMOL/L (-2.5-2.5); ABG HCO3 32.5 MMOL/L (20-26); ABG Oxygen Saturation 97.9 % (95-100); ABG PCO2 38.2 MM HG (35-48); ABG PH 7.532 (7.35-7.45); ABG PO2 83.3 MM HG (80-95); ABG TCO2 29.5 MMOL/L (23-27); Allen Test Positive; Pt O2 Delivery Device Ventilator
[2019-02-04] MEDS: INSULIN GLARGINE 100 UNIT/ML SUBCUT SCH ×2 (09:24→20:29)
[2019-02-04] MEDS: METOPROLOL TARTRATE 25 MG TABLET PO SCH ×2 (09:25→20:29)
[2019-02-04] MEDS: predniSONE 20 MG TABLET PO SCH (09:25)
[2019-02-04] MEDS: LANSOPRAZOLE ODT 30 MG TABLET PEG SCH ×2 (09:25→20:29)
[2019-02-04] MEDS: APIXABAN 2.5 MG TABLET PO SCH ×2 (09:26→20:29)
[2019-02-04] MEDS: FUROSEMIDE 40 MG/4 ML VIAL IV SCH (09:26)
[2019-02-04] MEDS: ASPIRIN CHEW 81 MG TABLET PO SCH (09:26)
[2019-02-04] MEDS: WHEAT DEXTRIN POWDER 244 GM BOTTLE PO SCH ×3 (09:26→20:30)
[2019-02-04] MEDS: MENTHOL/ZINC OXIDE OINT 71 GM JAR TOP SCH ×2 (09:26→20:30)
[2019-02-04] MEDS: VANCOMYCIN INJ 1,250 MG in SODIUM CHLORIDE 0.9% 250 ML IV SCH (09:44)
[2019-02-04] MEDS: PROPOFOL 1,000 MG/100 ML BOTTLE IV SCH (09:47)
[2019-02-04] MEDS: ACETAMINOPHEN 325 MG/10.15 ML UDCUP PO PRN ×2 (14:35→20:29)
[2019-02-04] MEDS: MICAFUNGIN 100 MG, MICAFUNGIN 50 MG in SODIUM CHLORIDE 0.9% 100 ML IV SCH (14:37)
[2019-02-04] MEDS: MYLANTA/LIDO VISC 2:1 300 ML BOTTLE SWISH/SWAL PRN ×2 (16:28→19:20)
[2019-02-04] MEDS: ATORVASTATIN 40 MG TABLET PO SCH (20:29)
[2019-02-05] MEDS: INSULIN LISPRO 100 UNIT/ML SUBCUT SCH ×6 (00:40→20:46)
[2019-02-05] MEDS: ALBUTEROL/IPRATROPIUM 3 ML NEB RESP TX SCH ×4 (02:18→21:09)
[2019-02-05] MEDS: ACETAMINOPHEN 325 MG/10.15 ML UDCUP PO PRN ×2 (02:55→17:59)
[2019-02-05] MEDS: MYLANTA/LIDO VISC 2:1 300 ML BOTTLE SWISH/SWAL PRN ×3 (03:00→20:51)
[2019-02-05 04:27] LABS: Basophils % 0.3 % (0.0-0.8); Eosinophils % 0.3 % (0.00-10.9); Hematocrit 26.3 VOL% (35.7-47.0); Hemoglobin 8.3 GM/DL (12.0-16.0); Immature Granulocytes % 0.3 %; Immature Granulocytes Absolute 0.03 #; Lymphocytes # 2.2 10*3/uL (1.4-4.0); Lymphocytes % 21.7 % (21.3-54.2); Mean Corpuscular HGB Conc 31.6 GM/DL (32-36); Mean Corpuscular Volume 87.4 FL (87-102); Mean Platelet Volume 10.3 FL (9.6-12.0); Monocytes % 6.6 % (1.7-12.7); Neutrophils % 70.8 % (38.7-73.9); Platelet Count 401 T/CUMM (130-400); Red Blood Count 3.01 MC/CUMM (3.8-5.5); Red Cell Distribution Width 15.3 % (9.3-17.3); White Blood Count 10.3 T/CUMM (4-12)
[2019-02-05 04:35] LABS: ABG Base Excess 6.6 MMOL/L (-2.5-2.5); ABG HCO3 30.4 MMOL/L (20-26); ABG Oxygen Saturation 95.5 % (95-100); ABG PCO2 33.4 MM HG (35-48); ABG PH 7.551 (7.35-7.45); ABG PO2 69.3 MM HG (80-95); Allen Test Positive; Pt O2 Delivery Device Ventilator
[2019-02-05 04:37] LABS: Calcium 8.3 MG/DL (8.5-10.1); Osmolality,Calculated 288.4 MOS/KG (273-304)
[2019-02-05 04:43] LABS: Prealbumin 13.2 MG/DL (20-40)
[2019-02-05] MEDS: MAGNESIUM SULF RIDER 2 GM in PREMIX 1 EACH IV PRN (04:55)
[2019-02-05] MEDS: POTASSIUM CHLORIDE RIDER 10 MEQ in PREMIX 1 EACH IV PRN ×4 (05:35→09:55)
[2019-02-05] MEDS: INSULIN GLARGINE 100 UNIT/ML SUBCUT SCH ×3 (08:49→20:46)
[2019-02-05] MEDS: FUROSEMIDE 40 MG/4 ML VIAL IV SCH (08:49)
[2019-02-05] MEDS: predniSONE 20 MG TABLET PO SCH (08:50)
[2019-02-05] MEDS: ASPIRIN CHEW 81 MG TABLET PO SCH (08:50)
[2019-02-05] MEDS: APIXABAN 2.5 MG TABLET PO SCH ×2 (08:50→20:45)
[2019-02-05] MEDS: LANSOPRAZOLE ODT 30 MG TABLET PEG SCH ×2 (08:51→20:46)
[2019-02-05] MEDS ORDERED: MAGNESIUM SULF RIDER 2 GM in PREMIX 1 EACH IV ONE (08:51)
[2019-02-05] MEDS: WHEAT DEXTRIN POWDER 244 GM BOTTLE PO SCH ×3 (08:52→20:47)
[2019-02-05] MEDS: MENTHOL/ZINC OXIDE OINT 71 GM JAR TOP SCH ×2 (08:52→20:47)
[2019-02-05] MEDS: METOPROLOL TARTRATE 25 MG TABLET PO SCH ×2 (08:52→20:46)
[2019-02-05] MEDS: POTASSIUM CHLORIDE 20 MEQ/15 ML UDCUP PER TUBE SCH ×4 (09:06→20:47)
[2019-02-05] MEDS: VANCOMYCIN INJ 1,250 MG in SODIUM CHLORIDE 0.9% 250 ML IV SCH (09:07)
[2019-02-05] MEDS: PROPOFOL 1,000 MG/100 ML BOTTLE IV SCH (10:06)
[2019-02-05] MEDS ORDERED: GLUCAGON 1 MG VIAL IM PRN (11:51)
[2019-02-05] MEDS: MICAFUNGIN 100 MG, MICAFUNGIN 50 MG in SODIUM CHLORIDE 0.9% 100 ML IV SCH (15:03)
[2019-02-05 16:55] VITALS: BP 135/66
[2019-02-05] MEDS: ATORVASTATIN 40 MG TABLET PO SCH (20:45)
[2019-02-05] MEDS: POTASSIUM PHOS/SOD PHOS POWDER 250 MG PACK PO SCH (20:47)
[2019-02-06] MEDS: INSULIN LISPRO 100 UNIT/ML SUBCUT SCH ×4 (00:29→12:29)
[2019-02-06] MEDS: ALBUTEROL/IPRATROPIUM 3 ML NEB RESP TX SCH ×3 (00:37→13:04)
[2019-02-06] MEDS ORDERED: SODIUM CHLORIDE 0.9% 500 ML IV ONE (02:11)
[2019-02-06] MEDS: ACETAMINOPHEN 325 MG/10.15 ML UDCUP PO PRN ×2 (02:23→12:37)
[2019-02-06 05:06] LABS: Basophils % 0.4 % (0.0-0.8); Eosinophils # 0.1 10*3/uL (0.0-0.87); Eosinophils % 1.1 % (0.00-10.9); Hematocrit 25.8 VOL% (35.7-47.0); Immature Granulocytes % 0.8 %; Immature Granulocytes Absolute 0.08 #; Lymphocytes # 2.2 10*3/uL (1.4-4.0); Lymphocytes % 20.2 % (21.3-54.2); Mean Corpuscular Volume 87.8 FL (87-102); Mean Platelet Volume 10.9 FL (9.6-12.0); Monocytes % 4.8 % (1.7-12.7); Neutrophils % 72.7 % (38.7-73.9); Platelet Count 330 T/CUMM (130-400); Red Blood Count 2.94 MC/CUMM (3.8-5.5); Red Cell Distribution Width 15.5 % (9.3-17.3); White Blood Count 10.6 T/CUMM (4-12)
[2019-02-06 05:22] LABS: Albumin 1.7 G/DL (3.4-5.0); Bilirubin,Total 0.6 MG/DL (0.2-1.0); Calcium 8.2 MG/DL (8.5-10.1); Total Protein 5.9 G/DL (6.4-8.3)
[2019-02-06] MEDS ORDERED: MAGNESIUM SULF RIDER 2 GM in PREMIX 1 EACH IV ONE (09:20)
[2019-02-06] MEDS: predniSONE 20 MG TABLET PO SCH (09:24)
[2019-02-06] MEDS: LANSOPRAZOLE ODT 30 MG TABLET PEG SCH (09:25)
[2019-02-06] MEDS: ASPIRIN CHEW 81 MG TABLET PO SCH (09:25)
[2019-02-06] MEDS: APIXABAN 2.5 MG TABLET PO SCH (09:25)
[2019-02-06] MEDS: METOPROLOL TARTRATE 25 MG TABLET PO SCH (09:25)
[2019-02-06] MEDS: MYLANTA/LIDO VISC 2:1 300 ML BOTTLE SWISH/SWAL PRN (09:26)
[2019-02-06] MEDS: INSULIN GLARGINE 100 UNIT/ML SUBCUT SCH (09:26)
[2019-02-06] MEDS: WHEAT DEXTRIN POWDER 244 GM BOTTLE PO SCH (09:26)
[2019-02-06] MEDS: MENTHOL/ZINC OXIDE OINT 71 GM JAR TOP SCH (09:26)
[2019-02-06] MEDS: POTASSIUM PHOS/SOD PHOS POWDER 250 MG PACK PO SCH (09:26)
[2019-02-06] MEDS: FUROSEMIDE 40 MG/4 ML VIAL IV SCH (09:28)
[2019-02-06] MEDS: VANCOMYCIN INJ 1,250 MG in SODIUM CHLORIDE 0.9% 250 ML IV SCH (09:35)
[2019-02-06] MEDS: PROPOFOL 1,000 MG/100 ML BOTTLE IV SCH (10:51)
[2019-02-06 12:53] LABS: Apearance,Urine Clear (Clear); Bacteria,Urine Occasional /HPF (Few); Bilirubin,Urine Negative (Negative); Blood, Urine NEGATIVE (Negative); Glucose,Urine (UA) Negative (Negative); Ketones,Urine Negative (Negative); Nitrite,Urine Negative (Negative); Protein,Urine Negative; RBC,Urine 1 /HPF (0-4); Squamous Epithelial Cell,Urine Moderate /HPF (0-10); Urine Color Straw (Yellow); Urine Urobilinogen 0.2 EU/DL (0.2-1.0); WBC,Urine 1 /HPF (0-6)
[2019-02-06] MEDS ORDERED: PNEUMOCOCCAL VACCINE (23 VALENT) 0.5 ML VIAL IM ONE (14:00)
== END 2019-02-06 13:55 | DRG 4 ==
LOC: N.ED 16:31 → N.EDINP 18:57 → SUATTDRO 18:57 → N.CC 20:01 → N.5E 01-01 16:13 → N.CC 01-06 06:53
PROVIDERS: ADMIT Internal Medicine; ATTEND Internal Medicine
PROC: EGDWPEG (ICD-10-PCS; 2019-02-02 07:35)